=== PATIENT | female | born 1925 | race Caucasian/White ===

== ENCOUNTER 2017-01-05 10:01 | Emergency (ER) | payer OTHER ==
[2017-01-05 10:18] VITALS: PULSE 63; O2SAT 96
[2017-01-05] MEDS ORDERED: LET GEL TOPICAL 1 EA SYR TP ONE (10:47)
--- NOTE | 2017-01-05 11:11 | EDPHY ---
HPI/HX/ROS/PE/MDM Narrative: CHIEF COMPLAINT: Fall, head and knee injury HPI: The patient is a 89-year-old female who is on chronic anticoagulation with Coumadin for "a heart issue." Prior to arrival, the patient tripped over something while at a pool and struck her right forehead and left knee. She did not lose consciousness. She complains of pain to her right forehead and left knee. She was unable to ambulate secondary to pain. She does not remember when her INR was last checked. REVIEW OF SYSTEMS: Aside from elements discussed in the HPI, a comprehensive 10-point review of systems was reviewed and is negative. PMH: Chronic anticoagulation, pacemaker/AICD. SOCIAL HISTORY: Denies alcohol or drug abuse. PHYSICAL EXAM: General:Patient is alert, in no acute distress. Family members are actively engaged in some sort of energy work on patient, stroking their hands through the air over her body. Head: Abrasion and contusion is noted to right forehead. Otherwise atraumatic. ENT:Eyes are normal to inspection. ENT inspection normal. Neck: Normal inspection. Full range of motion. Respiratory:No respiratory distress. Breath sounds normal bilaterally. Cardiovascular: Regular rate and rhythm. Strong peripheral pulses. Normal cap refill. Abdomen:The abdomen is nontender to palpation. There are no peritoneal signs. There are normal bowel sounds. Back: Normal to inspection. No tenderness to palpation. Skin: Normal color. No rash. Warm and dry. Extremities: Skin tear noted to right knee. Tenderness, erythema is present to the left anterior knee. Moderate pain with range of motion. No deformity. Neuro: Oriented x3. Normal motor function. Normal sensory function. ED Course: CT head is negative for fracture or bleed. X-ray of left knee is significant for patellar fracture. Patient will be placed in a knee immobilizer and given crutches as well as orthopedic referral. Family member requested that we perform a blood test to rule out concussion. I explained this test is not available at the hospital and likely has no clinical relevance. MDM: This patient presents with head injury in the setting of Coumadin therapy. Thankfully there is no evidence of skull fracture or intracranial bleed. She does have a small patellar fracture on x-ray and was placed in a knee immobilizer and given orthopedic follow-up for this. I see no evidence of active bleeding. There is no evidence of compartment syndrome. All the patient 's questions were answered and she is satisfied with the plan of care. - Data Points Imaging Results: Imaging Impressions Head CT 01/05/17 10:29 Impression: Stable elderly head CT since October 2015. No acute posttraumatic abnormality identified. Results called and discussed with Newton Flower MD, at 01/05/2017 10:54 General information for patients regarding this examination can be found at [email or web address]. If you have questions or comments about this report, please contact me at (hospital) or [phone] (cell). Knee X-Ray 01/05/17 10:55 Impression: 1. Acute minimally distracted transverse fracture inferior pole the patella. 2. Severe patellofemoral osteoarthritis and patellofemoral tracking abnormality. Imaging: Discussed imaging studies w/ scallop binder Radiologist, I viewed and interpreted images myself Laboratory Results: Laboratory Results 01/05/17 11:40 01/05/17 01/05/17 01/05/17 11:40 11:40 11:40 WBC 4.66 10^3/uL 10^3/uL (3.80-9.50) RBC 4.34 10^6/uL 10^6/uL (4.18-5.33) Hgb 13.6 g/dL g/dL (12.6-16.3) Hct 41.5 % % (38.0-47.0) MCV 95.6 fL fL (81.5-99.8) MCH 31.3 pg pg (27.9-34.1) MCHC 32.8 g/dL g/dL (32.4-36.7) RDW 13.1 % % (11.5-15.2) Plt Count 199 10^3/uL 10^3/uL (150-400) MPV 9.9 fL fL (8.7-11.7) Neut % (Auto) 54.6 % % (39.3-74.2) Lymph % (Auto) 30.7 % % (15.0-45.0) [place] % (Auto) 10.7 % % (4.5-13.0) Eos % (Auto) 3.4 % % (0.6-7.6) Baso % (Auto) 0.2 % L % (0.3-1.7) Nucleat RBC Rel Count 0.0 % % (0.0-0.2) Absolute Neuts (auto) 2.54 10^3/uL 10^3/uL (1.70-6.50) Absolute Lymphs (auto) 1.43 10^3/uL 10^3/uL (1.00-3.00) Absolute Monos (auto) 0.50 10^3/uL 10^3/uL (0.30-0.80) Absolute Eos (auto) 0.16 10^3/uL 10^3/uL (0.03-0.40) Absolute Basos (auto) 0.01 10^3/uL L 10^3/uL (0.02-0.10) Absolute Nucleated RBC 0.00 10^3/uL 10^3/uL (0-0.01) Immature Gran % 0.4 % % (0.0-1.1) Immature Gran # 0.02 10^3/uL 10^3/uL (0.00-0.10) PT Pending INR Pending APTT Pending Sodium Pending Potassium Pending Chloride Pending Carbon Dioxide Pending Anion Gap Pending BUN Pending Creatinine Pending Estimated GFR Pending Glucose Pending Calcium Pending Medications Given: Discontinued Medications Tetracaine/Epinephrine/Lidocaine (Let Gel Topical) 1 ea TP EDNOW ONE Stop: 01/05/17 10:48 Last Admin: 01/05/17 10:53 Dose: 1 ea General Time Seen by Provider: 01/05/17 10:20 Initial Vital Signs: Initial Vital Signs Temperature (C) 36.6 C 01/05/17 10:15 Heart Rate 63 01/05/17 10:15 Respiratory Rate 18 01/05/17 10:15 Blood Pressure 185/90 H 01/05/17 10:15 O2 Sat (%) 96 01/05/17 10:15 O2 Delivery Mode Room Air Allergies/Adverse Reactions: morphine [Morphine] Allergy (Mild, Verified 01/05/17 10:13) n/v Home Medications: Medication Instructions Recorded Ergocalciferol [Vitamin D2 (*)] 50,000 unit PO HARRIS@01/05/17 Isosorbide Mononitrate [Imdur 30 30 mg PO HS 01/05/17 mg (*)] Lisinopril [Zestril 2.5 mg (*)] 2.5 mg PO DAILY 01/05/17 Metoprolol Tartrate [Lopressor 25 25 mg PO BID 01/05/17 mg (*)] Multivitamins [Multivitamin (*)] 1 each PO DAILY 01/05/17 Ranolazine [Ranexa] 500 mg PO BID 01/05/17 Warfarin Sodium [Coumadin 3MG (*)] 3 mg PO DAILY16 01/05/17 Warfarin Sodium [Coumadin 3MG (*)] 3 mg PO DAILY16 01/05/17 Departure - Departure Disposition: Home, Routine, Self-Care Clinical Impression: Patella fracture, Forehead contusion Condition: Good Instructions: Patellar Fracture (ED) Additional Instructions: Rest, ice, elevation. Follow up with an orthopedic surgeon within one week. Return to the emergency department for worsening pain, swelling, numbness, weakness or other concerns. Wear splint at all times until reevaluation. Referrals: Rasta Ness MD [Primary Care Provider] - As per Instructions Jett Rankin MD [Medical Doctor] - As per Instructions
[2017-01-05 11:50] LABS: % IMMATURE GRANULYOCYTES 0.4 % (0.0-1.1); ABSOLUTE IMMATURE GRANULOCYTES 0.02 10^3/uL (0.00-0.10); ADD DIFF? NO; ADD MORPH? NO; ADD SCAN? NO; ATYPICAL LYMPHOCYTE FLAG 0 (0-99); FRAGMENT RBC FLAG 0 (0-99); HEMATOCRIT 41.5 % (38.0-47.0); HEMOGLOBIN 13.6 g/dL (12.6-16.3); LEFT SHIFT FLG 0 (0-99); LIPEMIA HEMOLYSIS FLAG 80 (0-99); MEAN CELL HEMOGLOBIN 31.3 pg (27.9-34.1); MEAN CELL HEMOGLOBIN CONCENTR. 32.8 g/dL (32.4-36.7); MEAN CELL VOLUME 95.6 fL (81.5-99.8); MEAN PLATELET VOLUME 9.9 fL (8.7-11.7); PLATELET CLUMPS FLAG 0 (0-99); PLATELET COUNT 199 10^3/uL (150-400); RED BLOOD CELL COUNT 4.34 10^6/uL (4.18-5.33); RED CELL DISTRIBUTION WIDTH 13.1 % (11.5-15.2)
[2017-01-05 12:03] LABS: INR 2.3 (0.83-1.16); PROTIME(PATIENT) 25.5 SEC (12.0-15.0)
[2017-01-05 12:04] LABS: APTT 34.4 SEC (23.0-38.0)
[2017-01-05 12:11] VITALS: BP 179/93; RESP 14; TEMP 97.7
[2017-01-05 12:14] LABS: ANION GAP 11 mEq/L (8-16); CALCIUM 9.9 mg/dL (8.5-10.4); CARBON DIOXIDE 23 mEq/l (22-31); CHLORIDE 104 mEq/L (97-110); CREATININE 0.9 mg/dL (0.6-1.0); GLOMERULAR FILTRATION RATE 59; GLUCOSE 171 mg/dL (70-100); POTASSIUM 4.3 mEq/L (3.5-5.2); SODIUM 138 mEq/L (134-144)
== END 2017-01-05 12:43 | disposition home or self-care (01) ==
LOC: UNDOADMOB 11:11
DX: S82.032A Displaced transverse fracture of left patella, initial encounter for closed fracture (principal); S00.83XA Contusion of other part of head, initial encounter; Z79.01 Long term (current) use of anticoagulants; Z95.0 Presence of cardiac pacemaker; W01.198A Fall on same level from slipping, tripping and stumbling with subsequent striking against other object, initial encounter
CPT/HCPCS: 70450; 73564; 99285; L1830

== ENCOUNTER 2017-06-08 16:45 | Inpatient (IN) | payer OTHER ==
--- NOTE | 2017-06-08 17:29 | EDPHY ---
H & P Time Seen by Provider: 06/08/17 16:58 HPI/ROS: CHIEF COMPLAINT: Left lower quadrant pain HISTORY OF PRESENT ILLNESS: Patient is an 89-year-old female on Coumadin with a history of right nephrectomy who presents to the emergency department with left lower quadrant pain. Her pain started at 7:00 p.m. She describes left lower quadrant pain radiating to left flank. She strep did as aching. It was severe. It resolved after about an hour. Her pain returned this this afternoon at 4:00 p.m.. Same location, in the left lower quadrant and left flank. She has had nausea with no vomiting. No dysuria. Mild frequency last night. No hematuria. She has had no fevers or chills. No diarrhea. No recent trauma. REVIEW OF SYSTEMS: My complete review of systems is negative except as mentioned in the HPI. Past Medical/Surgical History: Includes hypertension, blood caught, kidney cancer, hyperlipidemia Past surgical history: Includes right nephrectomy, bilateral hip replacements Social history: The patient does not smoke Smoking Status: Never smoked Physical Exam: Vitals noted GENERAL: Well-appearing, in no acute distress, alert. HEENT: Eyes normal to inspection, normal pharynx, no signs of dehydration. NECK: No thyromegaly, no lymphadenopathy, supple. RESPIRATORY: Clear to auscultation bilaterally, no rales, rhonchi or wheezing. CVS: Regular rate and rhythm, no rubs, murmurs, or gallops. ABDOMEN: Soft, left lower quadrant tenderness to palpation with no rebound or guarding, nondistended, no organomegaly. BACK: Normal to inspection, no CVA tenderness. SKIN: Normal color, no rash, warm, dry. No pallor. EXTREMITIES: No pedal edema, no calf tenderness, no Homans sign or cords, no joint swelling. NEURO/PSYCH: Alert and oriented x3, normal mood and affect, normal motor sensory exam. Constitutional: Initial Vital Signs Temperature (C) 36.8 C 06/08/17 16:48 Heart Rate 68 06/08/17 16:48 Respiratory Rate 18 06/08/17 16:48 Blood Pressure 188/110 H 06/08/17 16:48 O2 Sat (%) 97 06/08/17 16:48 O2 Delivery Mode Room Air Allergies/Adverse Reactions: morphine [Morphine] Allergy (Mild, Verified 01/05/17 10:13) n/v Home Medications: Medication Instructions Recorded Ergocalciferol [Vitamin D2 (*)] 50,000 unit PO HARRIS@09 01/05/17 Isosorbide Mononitrate [Imdur 30 30 mg PO HS 01/05/17 mg (*)] Lisinopril [Zestril 2.5 mg (*)] 2.5 mg PO DAILY 01/05/17 Metoprolol Tartrate [Lopressor 25 25 mg PO BID 01/05/17 mg (*)] Multivitamins [Multivitamin (*)] 1 each PO DAILY 01/05/17 Ranolazine [Ranexa] 500 mg PO BID 01/05/17 Warfarin Sodium [Coumadin 3MG (*)] 3 mg PO DAILY16 01/05/17 Warfarin Sodium [Coumadin 3MG (*)] 3 mg PO DAILY16 01/05/17 Medical Decision Making - Diagnostics Imaging Results: Imaging Impressions Abdomen/Pelvis CT 06/08/17 17:30 Impression: 1. Moderate to severe hydronephrosis in the left kidney, with prominent perinephric stranding around the left kidney. There is beam hardening artifact from the patient's bilateral total hip arthroplasties but probably a 9 mm obstructing calculus at the ureteropelvic junction distal left ureter. Surgically absent right kidney. 3. Infrarenal abdominal aortic aneurysm, measuring 3.8 cm. Extensive atherosclerotic change of the abdominal vasculature. 4. Multilevel degenerative change lumbar spine, with a levoscoliotic curvature. Degenerative change both SI joints. 5. Scarring in both lower lobes and atelectasis. Area of more masslike density , which could represent scar or atelectasis, measuring 9 mm, laterally in the right lower lobe. Recommend follow up in 3-6 months versus comparison to old studies. Results called and discussed with Linda Lezama M.D., on June 08, 2017 at 1852. Attention: This CT examination is specifically designed to evaluate patients who are clinically suspected of having acute obstructive uropathy. This examination does not use radiographic contrast, and as such, provides only a limited evaluation of the abdomen, pelvis, and retroperitoneum. If there is further clinical suspicion for pathological conditions other than obstructive uropathy, a complete CT evaluation of the abdomen and pelvis utilizing intravenous, oral, and rectal contrast should be considered. Chest X-Ray 06/08/17 18:55 Impression: Interstitial pulmonary edema versus viral pneumonia. ED Course/Re-evaluation: In the emergency department I discussed possible etiologies with the patient. Answered all her questions. IV was placed. Patient did not want any pain medication. Laboratory studies were obtained. Due the patient's tenderness on exam a CT with IV contrast was ordered. Patient's CBC is normal. INR is 1.3. Patient's chemistry panel is notable for an elevated creatinine of 2.0. Glucose is elevated at 233. Because of the elevated creatinine, her CT imaging was changed from IV contrast no contrast. CT of the abdomen pelvis: Please refer the dictated report by Dr. Appiah. The patient has a high-grade left ureteral obstruction. Patient noted to have a single kidney on the left. It is unclear from the initial images were the high grade obstruction is originating. Patient was noted to have a slight drop in her oxygen saturation. Because of this she was placed on nasal cannula. Additional laboratory studies including a troponin and BNP were ordered. Chest x-ray was ordered. I discussed the results with the patient. I discussed the case with Dr. Clay. He will evaluate the patient. I discussed the case with Dr. Appiah. Upon reformatting he states that he feels the obstruction is likely and 9 mm UVJ calculus. I discussed the plan with the patient and family. I answered all her questions. Patient will be admitted for further care and observation. Differential Diagnosis: My differential includes but is not limited to kidney stone, urinary tract infection, pyelonephritis, small-bowel obstruction, perforation, hematoma, dissection, aneurysm - Data Points Laboratory Results: Laboratory Results 06/08/17 17:15 06/08/17 17:15 06/08/17 06/08/17 06/08/17 17:50 17:15 17:15 WBC RBC Hgb Hct MCV MCH MCHC RDW Plt Count MPV Neut % (Auto) Lymph % (Auto) [place] % (Auto) Eos % (Auto) Baso % (Auto) Nucleat RBC Rel Count Absolute Neuts (auto) Absolute Lymphs (auto) Absolute Monos (auto) Absolute Eos (auto) Absolute Basos (auto) Absolute Nucleated RBC Immature Gran % Immature Gran # PT INR APTT Sodium 140 mEq/L mEq/L (135-145) Potassium 4.6 mEq/L mEq/L (3.5-5.2) Chloride 102 mEq/L mEq/L (97-110) Carbon Dioxide 23 mEq/l mEq/l (22-31) Anion Gap 15 mEq/L mEq/L (8-16) BUN 41 mg/dL H mg/dL (7-23) Creatinine 2.0 mg/dL H mg/dL (0.6-1.0) Estimated GFR 23 Glucose 233 mg/dL H mg/dL (70-100) Calcium 10.1 mg/dL mg/dL (8.5-10.4) Troponin I Pending NT-Pro-B Natriuret Pep Pending Urine Color Pending Urine Appearance Pending Urine pH Pending Ur Specific [place] Pending Urine Protein Pending Urine Ketones Pending Urine Blood Pending Urine Nitrate Pending Urine Bilirubin Pending Urine Urobilinogen Pending Ur Leukocyte Esterase Pending Urine RBC Pending Urine WBC Pending Ur Epithelial Cells Pending Urine Glucose Pending 06/08/17 06/08/17 17:15 17:15 WBC 6.80 10^3/uL 10^3/uL (3.80-9.50) RBC 4.54 10^6/uL 10^6/uL (4.18-5.33) Hgb 14.3 g/dL g/dL (12.6-16.3) Hct 42.2 % % (38.0-47.0) MCV 93.0 fL fL (81.5-99.8) MCH 31.5 pg pg (27.9-34.1) MCHC 33.9 g/dL g/dL (32.4-36.7) RDW 13.2 % % (11.5-15.2) Plt Count 200 10^3/uL 10^3/uL (150-400) MPV 10.2 fL fL (8.7-11.7) Neut % (Auto) 65.2 % % (39.3-74.2) Lymph % (Auto) 22.8 % % (15.0-45.0) [place] % (Auto) 10.1 % % (4.5-13.0) Eos % (Auto) 1.3 % % (0.6-7.6) Baso % (Auto) 0.3 % % (0.3-1.7) Nucleat RBC Rel Count 0.0 % % (0.0-0.2) Absolute Neuts (auto) 4.43 10^3/uL 10^3/uL (1.70-6.50) Absolute Lymphs (auto) 1.55 10^3/uL 10^3/uL (1.00-3.00) Absolute Monos (auto) 0.69 10^3/uL 10^3/uL (0.30-0.80) Absolute Eos (auto) 0.09 10^3/uL 10^3/uL (0.03-0.40) Absolute Basos (auto) 0.02 10^3/uL 10^3/uL (0.02-0.10) Absolute Nucleated RBC 0.00 10^3/uL 10^3/uL (0-0.01) Immature Gran % 0.3 % % (0.0-1.1) Immature Gran # 0.02 10^3/uL 10^3/uL (0.00-0.10) PT 17.2 SEC H SEC (12.0-15.0) INR 1.39 H (0.83-1.16) APTT 29.5 SEC SEC (23.0-38.0) Sodium Potassium Chloride Carbon Dioxide Anion Gap BUN Creatinine Estimated GFR Glucose Calcium Troponin I NT-Pro-B Natriuret Pep Urine Color Urine Appearance Urine pH Ur Specific [place] Urine Protein Urine Ketones Urine Blood Urine Nitrate Urine Bilirubin Urine Urobilinogen Ur Leukocyte Esterase Urine RBC Urine WBC Ur Epithelial Cells Urine Glucose Medications Given: Discontinued Medications Sodium Chloride (Ns) 500 mls @ 0 mls/hr IV EDNOW ONE; Wide Open PRN Reason: Protocol Stop: 06/08/17 17:31 Last Admin: 06/08/17 17:54 Dose: 500 mls Ondansetron HCl (Zofran) 4 mg IVP EDNOW ONE Stop: 06/08/17 17:31 Last Admin: 06/08/17 17:54 Dose: Not Given Departure - Departure Disposition: [facility] Clinical Impression: Ureterolithiasis, Acute renal injury Abdominal pain Qualifiers: Abdominal location: left lower quadrant Qualified Code(s): R10.32 - Left lower quadrant pain Condition: Good Referrals: Rasta Ness MD [Primary Care Provider] - As per Instructions
[2017-06-08] MEDS ORDERED: NS 500 ML IV ONE (17:30)
[2017-06-08] MEDS ORDERED: ONDANSETRON 4 MG/2 ML VIAL IVP ONE (17:30)
[2017-06-08 17:43] LABS: PLATELET COUNT 200 10^3/uL (150-400)
[2017-06-08 17:52] LABS: INR 1.39 (0.83-1.16); PROTIME(PATIENT) 17.2 SEC (12.0-15.0)
--- NOTE | 2017-06-08 21:24 | SOAPPROG ---
[facility] Progress Note Assessment/Plan: Assessment: Pt. w/ moderate-severe left hydronephrosis of unknown etiology in a solitary renal unit (s/p right nephroureterectomy for high-grade Stage T1 renal urothelial CA in 2006). Plan: 1. Scheduled for intraoperative cystoscopy, retrograde pyelography, possible ureteroscopy, and attempted stent placement on Sunday AM. 2. Hold all anticoagulants in preparation for surgery. 3. NPO after MN. 4. Full consult to follow in AM. Objective: Vital Signs Temp Pulse Resp BP Pulse Ox 36.7 C 77 17 209/100 H 94 06/08/17 20:56 06/08/17 20:56 06/08/17 20:56 06/08/17 20:56 06/08/17 20:56 PT 17.2 SEC (12.0-15.0) H 06/08/17 17:15 INR 1.39 (0.83-1.16) H 06/08/17 17:15 ICD10 Worksheet Patient Problems: Problems Problem Status Onset Abdominal pain Acute Acute renal injury Acute Ureterolithiasis Acute
[2017-06-08] MEDS ORDERED: ONDANSETRON 4 MG/2 ML VIAL IVP PRN (21:59)
[2017-06-08] MEDS ORDERED: ACETAMINOPHEN 325 MG TAB PO PRN (21:59)
[2017-06-08] MEDS ORDERED: hydrALAZINE 20 MG/ML VIAL IVP PRN (22:03)
[2017-06-08] MEDS: TAMSULOSIN HCL 0.4 MG CAP PO SCH (22:39)
--- NOTE | 2017-06-08 23:02 | GHP ---
[f rep st] HISTORY AND PHYSICAL DATE OF ADMISSION: 06/08/2017 CHIEF COMPLAINT: Left lower quadrant pain. HISTORY OF PRESENT ILLNESS: The patient is a pleasant 89-year-old female with a past medical history of ischemic cardiomyopathy and right nephrectomy secondary to high-grade renal urothelial carcinoma in 2006, who presented to the [facility] emergency room with complaints of left lower quadrant abdominal pain which started [address] imaging revealed moderate to severe hydroneph rosis in the left kidney with perinephric stranding around the left kidney. Further assessment of th e area was somewhat obstructed by a beam artifact from her hip replacements, but it was felt that she probably had a 9 mm obstructing calculus at the ureteropelvic junction in the distal left ureter. Otto Clay did her prior nephrectomy on the right and was consulted in the emergency room. Tentative plan is for cystoscopy tomorrow morning. PAST MEDICAL HISTORY: 1. Coronary artery disease, followed by Dr. David Grimm. 2. Ischemic cardiomyopathy with ejection fraction estimated at 42%. 3. Sick sinus syndrome, status post pacemaker placement. 4. History of recurrent deep vein thrombosis with a history of factor V Leiden mutation. 5. Renal cell carcinoma, status post right nephrectomy. 6. Diabetes mellitus type 2. 7. Abdominal aortic aneurysm. 8. Meningioma. 9. Osteoporosis. PAST SURGICAL HISTORY: 1. Bilateral hip replacements. 2. Right nephrectomy. 3. Pacemaker placement. 4. Hernia surgery. MEDICATIONS: This medication list is taken from her emergency room records. 1. Coumadin 3 mg daily. 2. Ranexa 500 mg twice a day. 3. Metoprolol 25 mg twice a day. 4. Lisinopril 2.5 mg daily. 5. Isosorbide mononitrate 30 mg nightly. 6. Vitamin D2 50,000 units weekly. ALLERGIES: Morphine, which causes nausea and vomiting. FAMILY HISTORY: Mother is . She had a history of coronary artery disease and diabetes. Dad is also . He also had a history of coronary artery disease and a basal cell carcinoma. SOCIAL HISTORY: The patient is currently . She has 4 children. She is a nonsmoker. 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 CODE STATUS: Discussed. She says she would be agreeable to resuscitation unless she had some sort o f terminal condition which, at that point in time, she would not want any sort of resuscitation attem pted. REVIEW OF SYSTEMS: CONSTITUTIONAL: No complaints of any fevers or chills. ENT: No recent upper re spiratory illnesses. CARDIOVASCULAR: No complaints of chest pains, palpitations or syncopal episode s. RESPIRATORY: No complaints of shortness of breath or productive cough. No pleuritic-type chest pain. GASTROINTESTINAL: No nausea or vomiting. Positive for left lower quadrant abdominal pain whi ch started approximately 24 hours ago. : No report of any blood in her urine. NEUROLOGIC: No co mplaints of headaches or focal weakness. HEMATOLOGIC: No history of any pulmonary embolism, but she does have a history of recurrent deep vein thromboses in her legs. PSYCHIATRIC: No history of anxi ety or depression. ENDOCRINE: No history of diabetes or thyroid abnormalities. SKIN: No reported skin rashes. MUSCULOSKELETAL: No focal joint pain. PHYSICAL EXAMINATION: VITAL SIGNS: Temperature 36.8, blood pressure is 188/110, heart rate 68, resp irations 16, saturating 97% on room air. GENERAL: Patient is resting comfortably in bed. She is ar ousable, awake, alert, conversant, in no acute distress. HEENT: Extraocular movements intact. Pupi ls equal. No scleral icterus. Mucous membranes moist. NECK: Supple. No thyroid enlargement noted . LUNGS: Crackles at both lung bases. No significant wheezing. Normal respiratory effort. HEART: Regular. No murmurs are appreciated. Soft heart sounds. ABDOMEN: Tender with palpation, left lo wer quadrant. No rebound tenderness. Nontender on the right. Normal bowel sounds. : No Blake c atheter in place. EXTREMITIES: No significant pitting edema. NEUROLOGIC: Cranial nerves 2-12 appe ar intact. Strength 5/5 in extremities. LABORATORY: White blood cell count is 6, hemoglobin 14, platelets 200. Sodium is 140, potassium 4.6 , chloride 102, bicarb 23, BUN 41, creatinine 2.0 with a baseline estimated at between 0.9 and 1.2 on past creatinine values. Glucose level is 233. INR is 1.3. PTT 29. BNP is 2630. Troponin 0.031. Chest x-ray showed interstitial edema versus pneumonia. CT scan of the abdomen and pelvis as detailed in the HPI. ASSESSMENT PLAN: 1. Acute kidney injury. Presumed secondary to ureter obstruction and subsequent hydronephrosis. Dr Chet Clay has consulted. Plan is for cystoscopy tomorrow. Continue to trend creatinine daily. 2. Left hydronephrosis, likely secondary to distal left ureter stone with cystoscopy tomorrow to add ress. We will start patient on Flomax. 3. Acute hypoxic respiratory failure. Patient is not on oxygen at home. She needed 2 L here. This may be related to some pulmonary edema noted on chest imaging. She does have crackles at her lung b ases as well. For now, I am going hold off on Lasix so as not to worsen the hydronephrosis. She doc ears stable with 2 L of nasal cannula. 4. Accelerated hypertension. We used p.r.n. hydralazine for now. Possibly Lasix tomorrow if still uncontrolled after cystoscopy. 5. Coronary artery disease. Currently asymptomatic. Continue current medical management. Dr. Romel nicholson will follow as an outpatient. 6. Ischemic cardiomyopathy. BNP is elevated. Not extremely edematous on exam but possibly developi ng mild fluid overload. 7. History of deep vein thrombosis. Would anticipate resuming anticoagulation after her cystoscopy. 8. Diabetes mellitus type 2. Uncertain control. We will check an A1c with tomorrow morning's labs. 9. Abdominal aortic aneurysm. This will need continued outpatient following. 10. Meningioma, as above. Continue outpatient monitoring. 11. Pulmonary nodule. This was noted on CT imaging. A followup CT in 3-6 months was recommended. 12. Deep venous thrombosis prophylaxis. Compression devices. We will hold anticoagulation at this point in time. DISPOSITION: I anticipate she will be here for over 2 midnights, probably 3-5 days. I will admit he r on inpatient status. /[id number]/MODL
--- NOTE | 2017-06-09 02:03 | PDMN ---
Medical Necessity Medical necessity: C/M review: est. > 2 MN LOS for eval and TX of acute and persistent - kidney injury presumed secondary to ureter obstruction and subsequent hydronephrosis, lleft hydronephrosis likely secondary to left ureteral stone, hypoxic respiratory failure, accelerated hypertension requiring planned 06/09/2017 surgical intervention- cystoscopy, ongoing IV Hydralazine as needed, pulse oximetry, supplemental O2, acute inpt PT.OT, comorbid CAD, ischemic cardiomyopathy, type 2 diabetes, history of recurrent DVT, Factor Leiden V mutation, abdominal aortic aneurysm, meningioma, pulmonary nodule noted on CT imaging, sick sinus syndrome S/P pacemaker placement, renal cell carcinoma S/P right nephrectomy, osteoporosis per H/P.
[2017-06-09 04:26] LABS: PLATELET COUNT 177 10^3/uL (150-400)
[2017-06-09 04:36] LABS: INR 1.56 (0.83-1.16); PROTIME(PATIENT) 18.8 SEC (12.0-15.0)
[2017-06-09] MEDS ORDERED: IOPAMIDOL (ISOVUE-M 300) 15 ML VIAL ONE ×2 (08:30→10:41)
[2017-06-09] MEDS ORDERED: LIDOCAINE 2% JELLY 20 ML (UROJECT) ONE (08:30)
[2017-06-09] MEDS ORDERED: levOFLOXACIN 500 MG/DEXTROSE 100 ML IV ONE (09:00)
--- NOTE | 2017-06-09 09:18 | PDANEPAE ---
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: [employer] Pacemaker Model: [id number] Pacemaker Mode: Unkown Date Pacemaker Last Checked: September 2016 ANE Patient History - Allergies Allergies/Adverse Reactions: morphine [Morphine] Allergy (Mild, Verified 01/05/17 10:13) n/v - Home Medications Home Medications: Ergocalciferol [Vitamin D2 (*)] 50,000 unit PO HARRIS@01/05/17 [Last Taken ] Isosorbide Mononitrate [Imdur 30 mg (*)] 30 mg PO HS 01/05/17 [Last Taken ] Lisinopril [Zestril 2.5 mg (*)] 2.5 mg PO DAILY@20 01/05/17 [Last Taken 06/08/17 ] Metoprolol Tartrate [Lopressor 25 mg (*)] 25 mg PO BID 01/05/17 [Last Taken AM] Ranolazine [Ranexa] 500 mg PO BID 01/05/17 [Last Taken 06/08/17 AM] Warfarin Sodium [Coumadin 3MG (*)] 3 mg PO DAILY16 01/05/17 [Last Taken 06/07/17 ] Atorvastatin Calcium [Lipitor 10 mg (*)] 10 mg PO DAILY 06/08/17 [Last Taken Unknown] glipiZIDE [Glucotrol] 5 mg PO DAILY 06/08/17 [Last Taken Unknown] - NPO status NPO Since - Liquids (Date): 06/09/17 NPO Since - Liquids (Time): 07:00 NPO Since - Solids (Date): 06/08/17 NPO Since - Solids (Time): 15:00 - Smoking Hx Smoking Status: Never smoked ANE Labs/Vital Signs - Labs Result Diagrams: 06/09/17 03:45 06/09/17 03:45 - Vital Signs Blood Pressure: 98/47 Heart Rate: 64 Respiratory Rate: 16 O2 Sat (%): 99 Height: 157.48 cm Weight: 64.864 kg ANE Physical Exam - Airway Mallampati Score: Class 2 - ASA Status ASA Status: III, E ANE Anesthesia Plan Anesthesia Plan: GA w LMA
[2017-06-09] MEDS ORDERED: fentaNYL 100 MCG/2 ML INJ ONE (09:23)
[2017-06-09] MEDS ORDERED: PROPOFOL 200 MG/20 ML VIAL ONE (09:24)
[2017-06-09] MEDS ORDERED: ONDANSETRON 4 MG/2 ML VIAL ONE (09:33)
[2017-06-09] MEDS ORDERED: PHENYLEPHRINE HCL 100 MCG/ML SYR ONE (10:16)
[2017-06-09] MEDS ORDERED: METOCLOPRAMIDE 10 MG/2 ML VIAL ONE (10:16)
[2017-06-09] MEDS ORDERED: ROCURONIUM 50 MG/5 ML VIAL ONE (10:45)
[2017-06-09] MEDS ORDERED: fentaNYL 100 MCG/2 ML INJ IVP PRN (11:11)
[2017-06-09] MEDS ORDERED: NALOXONE HCL 0.4 MG/ML INJ IVP PRN (11:11)
[2017-06-09] MEDS ORDERED: NS 500 ML IV PRN (11:11)
[2017-06-09] MEDS ORDERED: PROMETHAZINE HCL 25 MG/ML INJ IVP PRN (11:11)
--- NOTE | 2017-06-09 11:14 | POSTANESTH ---
Post Anesthetic Evaluation Cardiovascular Status: Similar to Pre-Op Cond Respiratory Status: Similar to Pre-op Cond. Level of Consciousness/Mental Status: Can Participate in Eval Pain Control: Adequate, Prn Tx Ordered Nausea/Vomiting Control: Adequate, Prn Tx Ordered Complications Possibly Related to Anesthesia: None Noted
--- NOTE | 2017-06-09 11:19 | POSTOPPROG ---
Post Op Note Date of Operation: 06/09/17 (consult # [id number]) Surgeon: Adrien Clay (# [id number]) Anesthesia: LMA Pre-op Diagnosis: Left hydronephrosis, solitary kidney Post-op Diagnosis: Left hydronephrosis, solitary kidney Procedure: Cysto, Left RGP, left ureteroscopy, ureteral stent placement (4.7 Fr. x 24) Findings: See op note Inf/Abcess present in the surg proc area at time of surgery?: No EBL: Minimal Complications: None Drains: Other (Left ureteral stent) Specimen(s): None
[2017-06-09] MEDS: TAMSULOSIN HCL 0.4 MG CAP PO SCH (11:53)
--- NOTE | 2017-06-09 12:04 | GCON ---
[f rep st] CONSULTATION UROLOGY CONSULTATION DATE OF CONSULTATION: 06/09/2017 REFERRING PHYSICIAN: Hospitalist Service REASON FOR CONSULTATION: Left renal obstruction with solitary kidney. 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 The patient was last seen in my office in 12/2016, at which time it was deemed that she was cured from her urothelial cancer and was not in need of any subsequent followup from this standpoint. More recently, the patient states that she has been having some very mild left upper quadrant abdominal discomfort which started possibly several months ago. Then about 3 days ago, the pain became acutely severe and radiated from the left upper quadrant into her left flank area and left back. She denies any associated dysuria, gross hematuria, fevers, flu-like symptoms, nor any other changes in her voiding pattern. She has noticed possibly some recent abnormal odor to her urine. The patient was seen in her primary care doctor's office on Sunday, then subsequently sent to the emergency room for further evaluation and management. CT scan was performed with results detailed below. 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 PAST SURGICAL HISTORY: Bilateral hip prosthesis (with most recent revision approximately 07/2013), right-sided hand assisted laparoscopic nephroureterectomy in 06/2006, transurethral bladder tumor resection in 07/2008 , umbilical hernia repair, pacemaker placement initially in 1996. ADMISSION MEDICATIONS: Coumadin 3 mg daily, Ranexa 500 mg twice daily, metoprolol 25 mg twice daily, lisinopril 2.5 mg daily, isosorbide 30 mg nightly. ALLERGIES: Morphine causes emesis. FAMILY HISTORY: Not contributory. SOCIAL HISTORY: The patient is and splits her time between [place] and [place]. She has 4 children. 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 She has a brief smoking history from use prior to her late 20s. She consumes an occasional alcoholic drink. REVIEW OF SYSTEMS: Unremarkable, other than mentioned above in the HPI and past medical history. PHYSICAL EXAMINATION: GENERAL: Elderly, well-developed, well-nourished white female in no acute distress presently. She is lying supine in bed comfortably. VITALS: BP 98/47 Pulse 70 RR 16 O2 sat. 99% on 3L nasal canula Temp. 36.7C HEENT: Normocephalic, atraumatic. NECK: Supple. CHEST: Unlabored respiratory pattern. HEART: Regular rate. ABDOMEN: Soft with mild tenderness in the left upper quadrant. No peritoneal signs. No involuntary guarding. BACK: Mild left CVA tenderness. EXTREMITIES: Warm without cyanosis, clubbing, or significant edema. VASCULAR: Normal femoral and dorsalis pedis pulses bilaterally. NEUROLOGIC: She is alert and oriented. She answers all questions appropriately with normal mood and affect. LABORATORY: Admission CBC notable for a white blood cell count 6,800. Otherwise normal study. Coagulation parameters notable for INR of 1.56 today, compared to 1.39 on admission yesterday. Chemistry panel yesterday notable for a creatinine of 2.0, which is up to 2.3 this morning. Glucose is 244 this a.m. and natruretic peptide from yesterday is 2630. Urinalysis has not been obtained. RADIOGRAPHIC STUDIES: Noncontrast abdominopelvic CT scan in the ER yesterday: Upon my review, notable for moderate to severe left hydronephrosis and proximal hydroureter down with level of obstruction extending down to an unknown level. It is difficult to assess the lower ureters due to severe artifact related to bilateral hip prostheses. She has fairly severe thoracolumbar spinal curvature. There is approximately a 4 cm infrarenal partially calcified aorta which deviates abnormally to the left side as a result of her spinal curvature. There is probable perirenal urine extravasation and this is also probably tracking alongside the proximal ureter. Right kidney is surgically absent. IMPRESSION: 1. Symptomatic severe left hydronephrosis and proximal hydroureter of unclear etiology. 2. Solitary left kidney as a result of prior right nephroureterectomy for high- grade renal pelvic urothelial cancer in 2006. 3. Acute on chronic renal failure. 4. Coumadin-induced coagulopathy. PLAN: 1. Proceed with intraoperative cystoscopy, retrograde pyelography, ureteroscopy , and other indicated procedures with attempted ureteral stent placement. I have explained to the patient that I will try and delineate the cause for her obstruction and treat if possible. 2. Hold anticoagulants for the present time in light of the impending surgery. Thank you for this consultation. /[id number]/MODL MTDD
--- NOTE | 2017-06-09 12:14 | GOP ---
[f rep st] OPERATIVE REPORT DATE OF OPERATION: 06/09/2017 SURGEON: Adrien Clay MD ANESTHESIA: Laryngeal mask. PREOPERATIVE DIAGNOSIS: 1. Moderate to severe left hydronephrosis and hydroureter of unclear etiology. 2. Solitary left kidney. 3. Acute on chronic renal failure. 4. History of right renal pelvic high-grade urothelial carcinoma, status post nephroureterectomy in 2006. POSTOPERATIVE DIAGNOSIS: Moderate hydronephrosis possibly secondary to ureteropelvic junction obstruction. PROCEDURE PERFORMED: 1. Cystourethroscopy, left retrograde pyelography. 2. Diagnostic left ureteroscopy. 3. Left ureteral stent placement (4.7-Andorran x 24 cm). FINDINGS: Normal ureter with moderate hydronephrosis, suggestive for ureteropelvic junction obstruction. ESTIMATED BLOOD LOSS: Minimal. INDICATIONS: This woman was admitted yesterday evening with severe left renal colic due to obstruction of unclear etiology. It was recommended the patient undergo intraoperative management at this time. The indications for the procedures as well as potential risks and complications were discussed with the patient preoperatively. She appeared to understand, her questions were answered , and she wished to proceed. Written informed surgical consent was thereafter obtained. DESCRIPTION OF PROCEDURE: The patient was brought to the operating room administered laryngeal mask anesthesia. She was carefully placed in the dorsal lithotomy position on the cystoscopic table. The genital area was sterilely prepped with Betadine scrub and paint, then draped in usual sterile fashion. Cystoscopy was performed with a 30-degree lens through a 22-Andorran sheath. Urethra was notable for a caruncle, but otherwise unremarkable. There were significant vaginal mucosal atrophic changes. Bladder revealed no areas of abnormal erythema, tumors, or foreign bodies. It should be mentioned that there was some very small blood clot-appearing elements within the bladder floating around. The bladder mucosa was completely normal otherwise. Right ureteral orifice was surgically absent. Left ureteral orifice was normal in appearance and position. A 5-Andorran open-ended ureteral catheter was used to perform retrograde pyelography on the left side. Under active fluoroscopic guidance, retrograde pyelogram revealed a possible filling defect in the mid ureter that seemed to be fairly mobile and possibly consistent with clot. It had an irregular appearance to it. There was minimal left hydroureter noted diffusely. There were no filling defects otherwise appreciated. There was moderate left hydronephrosis and calyceal dilatation. There was possible narrowing versus tortuosity (or both) of the left proximal ureter. I decided to proceed with diagnostic left ureteroscopy. Therefore, a 0.035 inch hydrophilic guidewire was advanced up the left ureter and into the renal collecting system as noted fluoroscopically. The passage of the guidewire was performed without any difficulty. The distal ureter was then dilated with a 4 cm balloon by maintaining a pressure of 16 atmospheres for about 4 minutes. The balloon dilator and cystoscope were then removed while keeping the guidewire in place. Semi-rigid ureteroscopy was then performed. The ureteroscope was advanced alongside the guidewire into the ureter. The ureteroscope was advanced all the way to the ureteropelvic junction. The ureter was completely normal until the proximal aspect was reached, just distal to the ureteropelvic junction. At this location there appeared to be some mild tortuosity and mild narrowing of the lumen. I was able to carefully navigate the scope through this portion of the ureter and into the renal pelvis. No distinct abnormalities were otherwise noted. I decided that it would not be beneficial at this point to proceed with flexible ureteronephroscopy. Certainly, no calculi nor other obstructing abnormalities of the ureter were appreciated, other than possibly some narrowing of the proximal aspect as noted above. I then decided to proceed with ureteral stenting. The ureteroscope was removed and the cystoscope was back-loaded over the guidewire. A 4.7-Andorran x 24 cm hydrophilic ureteral stent was advanced over the guidewire until it was properly positioned as seen fluoroscopically in the kidney and cystoscopically in the bladder. The bladder was then drained of all return which was relatively clear. The instruments were removed and 20 cc of 2% lidocaine injected transurethrally for postoperative analgesic purposes. The patient was then awakened, transferred to her bed, then taken to the recovery room. She tolerated the procedure well overall. COMPLICATIONS: None. DISPOSITION: She was transferred to the recovery room in stable condition. She should be monitored in the hospital today. I have recommended resuming her Coumadin tomorrow. If her renal function is improving appropriately, as expected, with tomorrow's lab work, then she can be discharged and I will have her follow up in my office in a couple weeks for further management. /[id number]/MODL MTDD
[2017-06-09] MEDS: ATORVASTATIN CALCIUM 10 MG TAB PO SCH (12:26)
[2017-06-09] MEDS: METOPROLOL TARTRATE 25 MG TAB PO SCH ×2 (12:26→21:02)
[2017-06-09] MEDS: PHENAZOPYRIDINE HCL 200 MG TAB PO SCH ×3 (13:30→21:02)
--- NOTE | 2017-06-09 14:07 | HOSPPROG ---
Hospitalist Progress Note Assessment/Plan: * ARF - obstruction at UPJ of unilateral kidney -s/p ureteral stent - source of obstruction unclear -follow creatinine - should improve with relief of obstruction * Acute on chronic systolic CHF - EF 42% -hold off on lasix - suspect natural diuresis will occur with relief of obstruction * CAD with ischemic cardiomyopathy - Ranexa * Recurrent DVT with Factor V Leiden -per urology - restart Coumadin tomorrow * SSS s/p PCM * DM II * Urothelial cell carcinoma s/p right nephrectomy * AAA 3.8 cm -outpatient follow-up * Pulmonary nodule -repeat CT 3-6 months Subjective: No complaints, some bladder irritation post procedure Objective: Vital Signs Temp Pulse Resp BP Pulse Ox 36.7 C 82 14 137/103 H 97 06/09/17 11:53 06/09/17 11:53 06/09/17 11:53 06/09/17 11:53 06/09/17 11:53 Laboratory Results 06/09/17 03:45 06/09/17 03:45 06/08/17 06/09/17 06/10/17 05:59 05:59 05:59 Intake Total 30 625 Output Total 200 100 Balance -170 525 PT 18.8 SEC (12.0-15.0) H 06/09/17 03:45 INR 1.56 (0.83-1.16) H 06/09/17 03:45 CXR viewed, my personal interpretation is- CHF CT a/p - suspect stone causing obstruction, pulmonary nodule - Physical Exam Constitutional: no apparent distress, appears nourished, not in pain Cardiovascular: regular rate and rhythym, no murmur, rub, or gallop Respiratory: no respiratory distress, no rales or rhonchi, clear to auscultation Gastrointestinal: normoactive bowel sounds, soft, non-tender abdomen, no palpable masses Skin: no rashes or abrasions, no fluctuance, no induration Neurologic: AAOx3, sensation intact bilaterally Psychiatric: interacting appropriately, not anxious, not encephalopathic, thought process linear ICD10 Worksheet Patient Problems: Problems Problem Status Onset Abdominal pain Acute Acute renal injury Acute Ureterolithiasis Acute
[2017-06-09] MEDS ORDERED: D50W 25 GM/50 ML VIAL IVP PRN (14:10)
[2017-06-09] MEDS ORDERED: NS 1,000 ML IV SCH (14:15)
--- NOTE | 2017-06-09 15:10 | ASMTCMCOM ---
CM Note CM Note Notes: 06/09/2017 Case Management Note Discussed pt during rounds. Pt was in the OR this morning w/ left ureteral stent placed. Pt admitted for hydronephrosis and acute renal injury. PT and OT were unable to eval pt today d/t morning procedure in the OR. Case Management d/c poc: to be determined pending recommendations from OT and PT. Case Management to follow. Date Signed: 06/09/2017 03:09 PM Electronically Signed By:Jadyn Lennon RN
[2017-06-09] MEDS ORDERED: ISOSORBIDE MONONITRATE 30 MG TAB.SR PO SCH (21:00)
[2017-06-09] MEDS: RANOLAZINE 500 MG TAB.ER PO SCH (21:01)
[2017-06-10 03:42] LABS: PLATELET COUNT 143 10^3/uL (150-400)
[2017-06-10 03:52] LABS: INR 1.68 (0.83-1.16); PROTIME(PATIENT) 19.9 SEC (12.0-15.0)
[2017-06-10 07:14] VITALS: BP 131/61; PULSE 74; RESP 16; TEMP 99.8
[2017-06-10] MEDS: PHENAZOPYRIDINE HCL 200 MG TAB PO SCH (08:27)
[2017-06-10] MEDS: ATORVASTATIN CALCIUM 10 MG TAB PO SCH (08:27)
[2017-06-10] MEDS: METOPROLOL TARTRATE 25 MG TAB PO SCH (08:27)
[2017-06-10] MEDS: RANOLAZINE 500 MG TAB.ER PO SCH (08:27)
[2017-06-10 08:29] VITALS: O2SAT 92
[2017-06-10] MEDS ORDERED: glipiZIDE 5 MG TAB PO SCH (09:00)
--- NOTE | 2017-06-10 09:45 | ASMTLACE ---
[facility] Length of stay for Answers: 1 day current admission Acuity / Level of Answers: Yes Care: Did the patient have an inpatient admission? Comorbidities - select Answers: Any tumor (including all that apply lymphoma or leukemia) Coronary Atery Disease Diabetes (uncontrolled or controlled) Mild liver or renal disease Other Notes: Ischemic cardiomyopathy, sick sinus syndrome s/p pacemaker placement, recurrent DVT,abdominal aortic aneurysm, meningioma, o radha oporosis # of Emergency department Answers: 1-2 visits in the last 6 months Score: 13 Date Signed: 06/10/2017 09:44 AM Electronically Signed By:Jadyn Lennon RN
--- NOTE | 2017-06-10 14:56 | ASDISCHSUM ---
Discharge Information Plan Status:Home with No Needs Medically Cleared to Leave:06/09/2017 Discharge Date:06/10/2017 11:20 AM CM D/C Disposition:Home, Routine, Self-Care ADT D/C Disposition:Home, Routine, Self-Care Projected Discharge Date:06/10/2017 11:20 AM Transportation at D/C:Family Discharge Delay Reason: Follow-Up Date:06/10/2017 11:20 AM Discharge Slot: Final Diagnosis: Placement Information Patient Contact Information Contact Name:GONZALEZANA Relationship:Daughter Address:[address] City:[facility] Phone: State/Zip Code:[place] Email: Financial Information Financial Class:Medicare Primary Plan Desc:MEDICARE INPATIENT Primary Plan Number:[id number] Secondary Plan Desc:[facility] [employer] [facility] [employer] Secondary Plan Number:[id number] Assessment Information LACE LACE Length of stay for Answers: 1 day current admission Acuity / Level of Answers: Yes Care: Did the patient have an inpatient admission? Comorbidities - select Answers: Any tumor (including all that apply lymphoma or leukemia) Coronary Atery Disease Diabetes (uncontrolled or controlled) Mild liver or renal disease Other Notes: Ischemic cardiomyopathy, sick sinus syndrome s/p pacemaker placement, recurrent DVT,abdominal aortic aneurysm, meningioma, o radha oporosis # of Emergency department Answers: 1-2 visits in the last 6 months Score: 13 Date Signed: 06/10/2017 09:44 AM Electronically Signed By:Jadyn Lennon RN [facility] Progress Note CM Note CM Note Notes: 06/09/2017 Case Management Note Discussed pt during rounds. Pt was in the OR this morning w/ left ureteral stent placed. Pt admitted for hydronephrosis and acute renal injury. PT and OT were unable to eval pt today d/t morning procedure in the OR. Case Management d/c poc: to be determined pending recommendations from OT and PT. Case Management to follow. Date Signed: 06/09/2017 03:09 PM Electronically Signed By:Jadyn Lennon RN Case Management Discharge Plan Note Case Management Discharge Discharge Order Complete? Answers: Yes Patient to Obtain Answers: Independently Medications Transportation Arranged Answers: Family/Friends Discharge Comments Notes: 06/10/2017 Case Management Note Met w/pt. IM signed. Pt plans for daughter to pick up and delivery driver and transport home. Daughter Libra [phone] Daughter Meryl [phone] Pt has second home in [facility] and plans to drive self to [place] after follow up with Dr. Clay. Pt is independent in ADL's. There are no further case management d/c needs identified. Date Signed: 06/10/2017 02:55 PM Electronically Signed By:Jadyn Lennon RN Intervention Information Intervention Type:*IM-Signed Date of Service:06/10/2017 09:39 AM Patient Type:Inpatient Staff Member:SHAWNA Lennon Hillary Hours:0.25 Discipline: Severity: Comment:
--- NOTE | 2017-06-10 15:22 | GDS ---
[f rep st] DISCHARGE SUMMARY DISCHARGE DIAGNOSES: 1. Acute renal failure due to obstruction at the ureteropelvic junction of a unilateral kidney, stat us post ureteral stent. 2. Urothelial cell carcinoma, status post right nephrectomy. 3. Fziot-ih-oiaaxxj systolic congestive heart failure. Ejection fraction 42%. 4. Coronary artery disease, with known stenoses, opting for medical management only. 5. Ischemic cardiomyopathy. 6. Recurrent deep vein thrombosis with factor V Leiden. 7. Sick sinus syndrome, status post pacemaker. 8. Diabetes type 2. 9. Abdominal aortic aneurysm 3.8 cm. 10. Pulmonary nodule, needs repeat CT scan through the next 6 months. HISTORY: The patient is an 89-year-old female, who presented with acute renal failure. Imaging reve aled obstruction at the UPJ of her left unilateral kidney. Urology was consulted. She went to [facility] and had a ureteral stent placed. Source of obstruction is unclear, but there was no evidence of a stone. After stent placement, her acute renal failure rapidly resolved. She should follow up with Dr. Clay for further stent management. She was volume overloaded on presentation with evidence of pulmonary edema. Given her acute renal fa ilure, however, she was not given Lasix. Once her obstruction was relieved, she auto-diuresed and wa s able to wean off oxygen back to room air. She has known coronary artery disease with stenoses, and she has declined cardiac catheterization and stenting. Instead, she is treated with Ranexa and Imdu r, and has no chest pain. She has a known history of recurrent DVT and factor V Leiden. Urology requested we re-initiate Couma din today, and she will gradually return back to her therapeutic state in the next couple of days. Incidental findings on imaging included an abdominal aortic aneurysm 3.8 cm and a pulmonary nodule. Both of these require outpatient followup. DISCHARGE MEDICATIONS: Please see computerized record for full detailed list. New medications: Non e. ADDITIONAL DISCHARGE INSTRUCTIONS: 1. Follow up with Dr. Clay in 2 weeks. 2. Incidental findings on imaging requiring outpatient followup. a. Abdominal aortic aneurysm 3.8 cm. b. Pulmonary nodule. Repeat CT scan chest 3 to 6 months. Greater than 30 minutes of time was spent arranging this discharge. Patient was seen and examined by me on the day of discharge. /[id number]/MODL
[2017-06-10] MEDS ORDERED: WARFARIN SODIUM 3 MG TAB PO SCH (16:00)
== END 2017-06-10 11:20 | disposition home or self-care (01) | DRG 693 ==
LOC: F2W 20:35
PROVIDERS: ADMIT Internal Medicine; ATTEND Internal Medicine
PROC: 0TJ98ZZ Inspection of Ureter, Via Natural or Artificial Opening Endoscopic (ICD-10-PCS; principal; 2017-06-09 09:00)
PROC: BT171ZZ Fluoroscopy of Left Ureter using Low Osmolar Contrast (ICD-10-PCS; principal; 2017-06-09 09:00)
PROC: 0T778DZ Dilation of Left Ureter with Intraluminal Device, Via Natural or Artificial Opening Endoscopic (ICD-10-PCS; principal; 2017-06-09 09:00)
PROC: 0TJB8ZZ Inspection of Bladder, Via Natural or Artificial Opening Endoscopic (ICD-10-PCS; principal; 2017-06-09 09:00)
DX: N13.1 Hydronephrosis with ureteral stricture, not elsewhere classified (principal); N17.9 Acute kidney failure, unspecified; I11.0 Hypertensive heart disease with heart failure; I50.23 Acute on chronic systolic (congestive) heart failure; D68.2 Hereditary deficiency of other clotting factors; I71.4 Abdominal aortic aneurysm, without rupture; R91.1 Solitary pulmonary nodule; E11.9 Type 2 diabetes mellitus without complications; I25.10 Atherosclerotic heart disease of native coronary artery without angina pectoris; E78.5 Hyperlipidemia, unspecified; Z86.718 Personal history of other venous thrombosis and embolism; Z79.01 Long term (current) use of anticoagulants; Z90.5 Acquired absence of kidney; Z85.528 Personal history of other malignant neoplasm of kidney; Z96.643 Presence of artificial hip joint, bilateral; Z95.0 Presence of cardiac pacemaker
CPT/HCPCS: 97166-GO; C1726; C1758; C1769; C2625; G8987-GO-CI; G8988-GO-CI; G8989-GO-CI; J0360; J1956; J2370; J2405; J2704; J2765; J3010; Q9967

== ENCOUNTER 2017-06-16 21:48 | Inpatient (IN) | payer OTHER ==
--- NOTE | 2017-06-16 22:09 | CPEKG ---
Heart Rate: 67 RR Interval: 896 P-R Interval: 144 QRSD Interval: 148 QT Interval: 468 QTC Interval: 494 P [place]: 102 QRS [place]: 133 T Wave [place]: 81 EKG Severity - ABNORMAL ECG - EKG Impression: A-V DUAL-PACED RHYTHM WITH SOME INHIBITION Electronically Signed By: Nick Cabrera 17-Jun-2017 00:47:37
--- NOTE | 2017-06-16 22:36 | EDPHY ---
H & P Stated Complaint: CP left side all day Time Seen by Provider: 06/16/17 22:15 HPI/ROS: Chief Complaint: Chest tightness HPI: 89-year-old woman came home after getting some dinner tonight. When she got home she felt the urge to go to the bathroom. On her way to the bathroom she developed substernal chest pain to a 8/10. Pain radiated to her left arm pit. Mild shortness of breath. She does have a history of DVT and PE in the past. She is on warfarin. Last had her INR checked a couple months ago. No recent illness. No fevers or chills. No cough. Has noticed some increasing left ankle swelling ankle swelling as well. Abdominal pain. No nausea or vomiting. No headache. No falls or other injuries. Pain is currently about a 2 to 3/10. Patient was here a week ago and had a ureteral stent placed. She has 1 kidney secondary to renal cell cancer. My ROS PMH: Pacemaker, PE and DVT with hypercoagulable state, renal cancer status post nephrectomy, Social History: No smoking, no alcohol, no recreational drug use Family History: non-contributory Physical Exam: Gen: Awake, Alert, No Distress HEENT: Nose: no rhinorrhea Eyes: PERRLA, EOMI Mouth: Moist mucosa Neck: Supple, no JVD Chest: nontender, lungs clear to auscultation Heart: S1, S2 normal, no murmur Abd: Soft, non-tender, no guarding Back: no CVA tenderness, no midline tenderness Ext: no edema, non-tender Skin: no rash Neuro: CN II-XII intact, Sensation grossly intact, Strength 5/5 in bilateral upper and lower extremities - Personal History Current Tetanus/Diphtheria Vaccine: Yes Current Tetanus Diphtheria and Acellular Pertussis (TDAP): Yes Tetanus Vaccine Date: < 10 years - Medical/Surgical History Hx Asthma: No Hx Chronic Respiratory Disease: No Hx Diabetes: Yes Hx Cardiac Disease: No Hx Renal Disease: Yes Hx Cirrhosis: No Hx Alcoholism: No Hx HIV/AIDS: No Hx Splenectomy or Spleen Trauma: No Other PMH: HTN, Blood clots, Kidney CA, rt nephrectomy, bilateral hip replacements 2 on left and 1 on right. pacer/defib - Social History Smoking Status: Never smoked Constitutional: Initial Vital Signs Heart Rate 88 06/16/17 21:50 Respiratory Rate 16 06/16/17 21:50 Blood Pressure 176/99 H 06/16/17 21:50 O2 Sat (%) 95 06/16/17 21:50 O2 Delivery Mode Room Air Allergies/Adverse Reactions: morphine [Morphine] Allergy (Mild, Verified 01/05/17 10:13) n/v Home Medications: Medication Instructions Recorded Ergocalciferol [Vitamin D2 (*)] 50,000 unit PO HARRIS@01/05/17 Isosorbide Mononitrate [Imdur 30 30 mg PO HS 01/05/17 mg (*)] Lisinopril [Zestril 2.5 mg (*)] 2.5 mg PO DAILY@20 01/05/17 Metoprolol Tartrate [Lopressor 25 25 mg PO BID 01/05/17 mg (*)] Ranolazine [Ranexa] 500 mg PO BID 01/05/17 Warfarin Sodium [Coumadin 3MG (*)] 3 mg PO DAILY16 01/05/17 Atorvastatin Calcium [Lipitor 10 10 mg PO DAILY 06/08/17 mg (*)] glipiZIDE [Glucotrol 5 mg] 5 mg PO DAILY 06/08/17 Medical Decision Making - Diagnostics EKG Interpretation: ECG time 10:08 p.m., she has got a av dual paced rhythm. Imaging Results: Imaging Impressions Chest X-Ray 06/16/17 22:32 Impression: Significant interval improvement in the interstitial edema pattern, compared to 06/08/17. Imaging: I viewed and interpreted images myself ED Course/Re-evaluation: 89-year-old with episodes substernal chest pain. Troponin is slightly elevated at 0.55. No acute findings on a chest x-ray, ECG is pacing this uninterpretable. INR is a bit subtherapeutic at 1.6. I have discussed with Dr. Watson, hospitalist. Will admit to PCU for further evaluation. - Data Points Laboratory Results: Laboratory Results 06/16/17 21:50 06/16/17 21:50 06/16/17 06/16/17 06/16/17 21:50 21:50 21:50 WBC 5.27 10^3/uL 10^3/uL (3.80-9.50) RBC 4.26 10^6/uL 10^6/uL (4.18-5.33) Hgb 13.4 g/dL g/dL (12.6-16.3) Hct 40.0 % % (38.0-47.0) MCV 93.9 fL fL (81.5-99.8) MCH 31.5 pg pg (27.9-34.1) MCHC 33.5 g/dL g/dL (32.4-36.7) RDW 13.8 % % (11.5-15.2) Plt Count 220 10^3/uL 10^3/uL (150-400) MPV 10.2 fL fL (8.7-11.7) Neut % (Auto) 45.4 % % (39.3-74.2) Lymph % (Auto) 38.5 % % (15.0-45.0) [place] % (Auto) 12.3 % % (4.5-13.0) Eos % (Auto) 3.2 % % (0.6-7.6) Baso % (Auto) 0.2 % L % (0.3-1.7) Nucleat RBC Rel Count 0.0 % % (0.0-0.2) Absolute Neuts (auto) 2.39 10^3/uL 10^3/uL (1.70-6.50) Absolute Lymphs (auto) 2.03 10^3/uL 10^3/uL (1.00-3.00) Absolute Monos (auto) 0.65 10^3/uL 10^3/uL (0.30-0.80) Absolute Eos (auto) 0.17 10^3/uL 10^3/uL (0.03-0.40) Absolute Basos (auto) 0.01 10^3/uL L 10^3/uL (0.02-0.10) Absolute Nucleated RBC 0.00 10^3/uL 10^3/uL (0-0.01) Immature Gran % 0.4 % % (0.0-1.1) Immature Gran # 0.02 10^3/uL 10^3/uL (0.00-0.10) PT 19.3 SEC H SEC (12.0-15.0) INR 1.61 H (0.83-1.16) APTT 29.4 SEC SEC (23.0-38.0) Sodium 143 mEq/L mEq/L (135-145) Potassium 4.6 mEq/L mEq/L (3.5-5.2) Chloride 103 mEq/L mEq/L (97-110) Carbon Dioxide 26 mEq/l mEq/l (22-31) Anion Gap 14 mEq/L mEq/L (8-16) BUN 20 mg/dL mg/dL (7-23) Creatinine 0.9 mg/dL mg/dL (0.6-1.0) Estimated GFR 59 Glucose 144 mg/dL H mg/dL (70-100) Calcium 10.1 mg/dL mg/dL (8.5-10.4) Troponin I 0.055 ng/mL H ng/mL (0.000-0.034) Departure - Departure Disposition: [facility] Inpatient Acute Clinical Impression: Chest pain Condition: Fair Referrals: Patient,NotPresent [Unknown] - As per Instructions
[2017-06-16 22:43] LABS: PLATELET COUNT 220 10^3/uL (150-400)
[2017-06-16 22:51] LABS: INR 1.61 (0.83-1.16); PROTIME(PATIENT) 19.3 SEC (12.0-15.0)
[2017-06-16] MEDS ORDERED: ONDANSETRON DISINTEGRATING 4 MG TAB PO PRN (23:15)
[2017-06-16] MEDS ORDERED: ONDANSETRON 4 MG/2 ML VIAL IVP PRN (23:15)
--- NOTE | 2017-06-17 01:17 | PDGENHP ---
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 Patient was on the toilet today when she noticed sudden onset chest pain. She describes this as 5/10 with radiation to L jaw. It lasted for about 1 hour. She also noticed some new L calf swelling. She was discharged on 06/10 after treatment for ureteral obstruction with stent placement. Of note, she follows with Dr. Grimm for CAD and ICM. She has had an abnormal nuclear stress test in the past but has opted for medical management only. History Information - Allergies/Home Medication List Allergies/Adverse Reactions: morphine [Morphine] Allergy (Mild, Verified 01/05/17 10:13) n/v Home Medications: Ergocalciferol [Vitamin D2 (*)] 50,000 unit PO HARRIS@09 01/05/17 [Last Taken ] Isosorbide Mononitrate [Imdur 30 mg (*)] 30 mg PO HS 01/05/17 [Last Taken ] Lisinopril [Zestril 2.5 mg (*)] 2.5 mg PO DAILY@20 01/05/17 [Last Taken 06/08/17 ] Metoprolol Tartrate [Lopressor 25 mg (*)] 25 mg PO BID 01/05/17 [Last Taken AM] Ranolazine [Ranexa] 500 mg PO BID 01/05/17 [Last Taken 06/08/17 AM] Warfarin Sodium [Coumadin 3MG (*)] 3 mg PO DAILY16 01/05/17 [Last Taken 06/07/17 ] Atorvastatin Calcium [Lipitor 10 mg (*)] 10 mg PO DAILY 06/08/17 [Last Taken Unknown] glipiZIDE [Glucotrol 5 mg] 5 mg PO DAILY 06/08/17 [Last Taken Unknown] I have personally reviewed and updated: family history, medical history - Past Medical History coronary artery disease, cancer, CHF, diabetes type 2 - Surgical History Reports: pacemaker/AICD Additional surgical history: Ureteral stent - Family History Positive for: cancer - Social History Smoking Status: Never smoked Review of Systems Review of Systems: ROS: 10pt was reviewed & negative except for what was stated in HPI & below Physical Exam Physical Exam: Temp Pulse Resp BP Pulse Ox 36.7 C 78 18 158/98 H 92 06/17/17 00:30 06/17/17 00:30 06/17/17 00:30 06/17/17 00:30 06/17/17 00:30 Constitutional: no apparent distress, not in pain Eyes: PERRL, EOMI Ears, Nose, Mouth, Throat: moist mucous membranes, no oral mucosal ulcers Cardiovascular: regular rate and rhythym, systolic murmur Respiratory: no respiratory distress, clear to auscultation Gastrointestinal: normoactive bowel sounds, soft, non-tender abdomen Skin: warm, normal color Musculoskeletal: full muscle strength, no muscle tenderness Neurologic: AAOx3, CN II-XII Intact Psychiatric: interacting appropriately, not anxious Lab Data & Imaging Review 06/16/17 21:50 06/16/17 21:50 WBC 5.27 10^3/uL (3.80-9.50) 06/16/17 21:50 RBC 4.26 10^6/uL (4.18-5.33) 06/16/17 21:50 Hgb 13.4 g/dL (12.6-16.3) 06/16/17 21:50 Hct 40.0 % (38.0-47.0) 06/16/17 21:50 MCV 93.9 fL (81.5-99.8) 06/16/17 21:50 MCH 31.5 pg (27.9-34.1) 06/16/17 21:50 MCHC 33.5 g/dL (32.4-36.7) 06/16/17 21:50 RDW 13.8 % (11.5-15.2) 06/16/17 21:50 Plt Count 220 10^3/uL (150-400) 06/16/17 21:50 MPV 10.2 fL (8.7-11.7) 06/16/17 21:50 Neut % (Auto) 45.4 % (39.3-74.2) 06/16/17 21:50 Lymph % (Auto) 38.5 % (15.0-45.0) 06/16/17 21:50 [place] % (Auto) 12.3 % (4.5-13.0) 06/16/17 21:50 Eos % (Auto) 3.2 % (0.6-7.6) 06/16/17 21:50 Baso % (Auto) 0.2 % (0.3-1.7) L 06/16/17 21:50 Nucleat RBC Rel Count 0.0 % (0.0-0.2) 06/16/17 21:50 Absolute Neuts (auto) 2.39 10^3/uL (1.70-6.50) 06/16/17 21:50 Absolute Lymphs (auto) 2.03 10^3/uL (1.00-3.00) 06/16/17 21:50 Absolute Monos (auto) 0.65 10^3/uL (0.30-0.80) 06/16/17 21:50 Absolute Eos (auto) 0.17 10^3/uL (0.03-0.40) 06/16/17 21:50 Absolute Basos (auto) 0.01 10^3/uL (0.02-0.10) L 06/16/17 21:50 Absolute Nucleated RBC 0.00 10^3/uL (0-0.01) 06/16/17 21:50 Immature Gran % 0.4 % (0.0-1.1) 06/16/17 21:50 Immature Gran # 0.02 10^3/uL (0.00-0.10) 06/16/17 21:50 PT 19.3 SEC (12.0-15.0) H 06/16/17 21:50 INR 1.61 (0.83-1.16) H 06/16/17 21:50 APTT 29.4 SEC (23.0-38.0) 06/16/17 21:50 D-Dimer 1.68 ug/mLFEU (0.00-0.50) H 06/16/17 21:50 Sodium 143 mEq/L (135-145) 06/16/17 21:50 Potassium 4.6 mEq/L (3.5-5.2) 06/16/17 21:50 Chloride 103 mEq/L (97-110) 06/16/17 21:50 Carbon Dioxide 26 mEq/l (22-31) 06/16/17 21:50 Anion Gap 14 mEq/L (8-16) 06/16/17 21:50 BUN 20 mg/dL (7-23) 06/16/17 21:50 Creatinine 0.9 mg/dL (0.6-1.0) 06/16/17 21:50 Estimated GFR 59 06/16/17 21:50 Glucose 144 mg/dL (70-100) H 06/16/17 21:50 Calcium 10.1 mg/dL (8.5-10.4) 06/16/17 21:50 Troponin I 0.055 ng/mL (0.000-0.034) H 06/16/17 21:50 Imaging Review: Imaging Impressions Chest X-Ray 06/16/17 22:32 Impression: Significant interval improvement in the interstitial edema pattern, compared to 06/08/17. Visualized and Interpreted Chest x-ray results: Yes Visualized and Interpreted EKG results: Yes EKG Interpretation: Positive for: other (V-paced rhythm) Assessment & Plan Assessment: 89 yo F w/ urothelial cell CA, recent ureteral obstruction, CAD, ICM, FVL, and NIDDM presents with chest pain. Plan: 1. Chest pain - Isolated episode while going to the bathroom. Pain radiated to L neck and lasted for about 1 hour. Troponin indeterminate in ED (.055) and ECG V-paced so difficult to interpret for ischemia. D-dimer elevated. Patient currently chest pain free. Of note, she has had an abnormal nuclear stress test in the past but opted for medical therapy only. She is followed by Dr. Grimm as an outpatient. Noting elevated D-dimer, subtherapeutic INR, and hx of FVL, PE is another possible explanation for chest pain. - Admit to PCU for observation - Monitor on telemetry, trend cardiac enzymes - Will consult cardiology to help guide next step noting patient has opted for non-invasive strategy in the past despite abnormal stress test 2. Elevated D-dimer - With complaints of L calf swelling starting today. Patient has history of FVL and subtherapeutic INR on admission. Warfarin was also held in holger-procedural setting for ureteral stent placed 2 weeks ago. Vital signs stable, on room air. - Check LLE ultrasound - Will not pursue CTPE noting patient only has one functioning kidney and is already on lifelong anticoagulation. Diagnosis of DVT(and presumed PE) would help isolate etiology of chest pain. 3. Hx of CAD, ICM - Last EF 42%, appears euvolemic on exam. CAD medically managed with statin, Ranexa, Imdur, and metoprolol. - Acute management as above 4. Hx of FVL, multiple VTEs - On warfarin for anticoagulation although subtherapeutic on admission. AC was held during recent admission for ureteral stent placement. - If new DVT, will bridge until INR>2 - Monitor daily INR 5. 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 Had ureteral stent place during recent admission for obstruction. Renal function WNL on admission. 6. T2DM - Sensitive SSI while inpatient. 7. SSS - s/p PPM. Diet - NPO pending ACS r/o Code - Full Ppx - LMWH until INR therapeutic Dispo - Admit to PCU under observation status
[2017-06-17] MEDS ORDERED: D50W 25 GM/50 ML SYR IVP PRN (01:36)
[2017-06-17] MEDS ORDERED: D50W 25 GM/50 ML VIAL IVP PRN (02:00)
[2017-06-17 04:32] LABS: PLATELET COUNT 196 10^3/uL (150-400)
[2017-06-17 04:41] LABS: INR 1.73 (0.83-1.16); PROTIME(PATIENT) 20.4 SEC (12.0-15.0)
[2017-06-17] MEDS ORDERED: HEPARIN 10,000 UNIT/10 ML MDV (1,000 UNIT/ML) IVP PRN (06:33)
[2017-06-17] MEDS ORDERED: HEPARIN 10,000 UNIT/10 ML MDV (1,000 UNIT/ML) IVP ONE (06:33)
[2017-06-17] MEDS ORDERED: HEPARIN/DEXTROSE 500 ML IV SCH (06:45)
--- NOTE | 2017-06-17 08:58 | HOSPPROG ---
Hospitalist Progress Note Assessment/Plan: * Non-STEMI -troponin up to 7, chest pain free -opted for med mgmt only in past, now desires cardiac cath -IV heparin -NPO for cath * CAD - known + stress test * Chronic systolic CHF - EF 42% * Recurrent DVT - Factor V Leiden -INR subtherapeutic - US pending rule out DVT * Urothelial cell cancer s/p right nephrectomy * Left ureteral obstruction s/p recent stent * SSS s/p PCM * DM II Subjective: No more CP since initial event Objective: Vital Signs Temp Pulse Resp BP Pulse Ox 36.6 C 66 14 151/96 H 95 06/17/17 07:49 06/17/17 07:49 06/17/17 07:49 06/17/17 07:49 06/17/17 07:49 Laboratory Results 06/17/17 03:30 06/17/17 03:30 PT 20.4 SEC (12.0-15.0) H 06/17/17 03:30 INR 1.73 (0.83-1.16) H 06/17/17 03:30 EKG viewed, my personal interpretation is - paced rhythm CXR - negative, CHF resolved - Physical Exam Constitutional: no apparent distress, appears nourished, not in pain Cardiovascular: regular rate and rhythym, no murmur, rub, or gallop Respiratory: no respiratory distress, no rales or rhonchi, clear to auscultation Gastrointestinal: normoactive bowel sounds, soft, non-tender abdomen, no palpable masses Skin: no rashes or abrasions, no fluctuance, no induration Neurologic: AAOx3, sensation intact bilaterally Psychiatric: interacting appropriately, not anxious, not encephalopathic, thought process linear ICD10 Worksheet Patient Problems: Problems Problem Status Onset Chest pain Acute Abdominal pain Acute Acute renal injury Acute Ureterolithiasis Acute
[2017-06-17] MEDS ORDERED: ENOXAPARIN 40 MG/0.4 ML SYR SC SCH (09:00)
[2017-06-17] MEDS ORDERED: LIDOCAINE 1% 300 MG/30 ML SDV ONE (09:32)
[2017-06-17] MEDS ORDERED: IOPAMIDOL (ISOVUE-370) 150 ML BTL IV ONE (09:33)
[2017-06-17] MEDS ORDERED: MIDAZOLAM 2 MG/2 ML VIAL ONE (09:33)
[2017-06-17] MEDS ORDERED: fentaNYL 100 MCG/2 ML INJ ONE (09:33)
--- NOTE | 2017-06-17 09:37 | PDMN ---
Medical Necessity Medical necessity: C/M review: est. > 2 MN LOS for eval and TX of acute NSTEMI , troponin up to 7, requiring planned 06/17/2017 cardiac catheterization, ongoing IV Heparin infusion, cardiac monitoring, comorbid CAD with known positive stress test, patient opted for medical management only in the past, chronic systolic CHF, recurrent DVT, Factor V Leiden, type II diabetes, history of urothelial cell cancer S/P right nephrectomy, sick sinus syndrome S/P permanent pacemaker placement per 06/17/2017 Hospitalist progress note.
[2017-06-17] MEDS: INSULIN LISPRO 100 UNIT/ML SC SCH ×3 (10:59→18:16)
[2017-06-17] MEDS: ASPIRIN EC 81 MG TAB PO SCH (12:23)
--- NOTE | 2017-06-17 12:27 | ASMTCMCOM ---
CM Note CM Note Notes: 89 yr old female admitted for CP. Recent discharge after Urethelial Cell CA-Ureteral obs-stent. She has a hx of CAD, CHF, DM-2, Pacer/defibrilator. Patient's daughter lives with her and numerous family members in area for support. Therapies have not yet evaluated, may not need to. Oriented and moving in room. May not have discharge needs. Date Signed: 06/17/2017 12:26 PM Electronically Signed By:Jaida North LCSW
--- NOTE | 2017-06-17 13:36 | GCON ---
[f rep st] CONSULTATION CARDIOLOGY CONSULTATION DATE OF CONSULTATION: 06/17/2017 REFERRING PHYSICIAN: Dimas Watson MD INDICATION FOR CONSULTATION: Chest pain, elevated troponin, paced rhythm. Known history of coronary artery disease. HISTORY OF PRESENT ILLNESS: The patient is a pleasant 89-year-old female, well known to [facility] and is closely followed by Dr. David Grimm. She has a known history of ischemic cardiomyopathy with most recent echocardiogram demonstrating LVEF of 30%. She has a known history of coronary artery disease, ICD primary prevention in the setting of ischemic cardiomyopathy , history of factor V Leiden, type 2 diabetes, essential hypertension, history of renal cell carcinoma, status post right nephrectomy, and recent admission for acute renal failure in the setting of obstruction of the left kidney, thought to be due to obstruction of the ureteropelvic junction of unclear etiology. She did undergo successful left ureteral stent 4.7 Serbian x 24 cm long on 06/09/2017, with Dr. Clay, in the setting of moderate to severe left hydronephrosis, and acute on chronic renal failure. She is scheduled to follow up with Dr. Clay in the next 2 weeks. Of note, she had been off Coumadin in anticipation of procedure. Her presentation today with subtherapeutic INR of approximately 1.7. The patient presented to [facility] yesterday in the setting of developing an episode of acute chest discomfort while on the toilet urinating. She describes 5/10 substernal chest pressure that radiated to her left shoulder and jaw. She states the symptoms lasted for approximately 45 minutes and resolved spontaneously. She had no other associated symptoms. She denied any associated nausea, vomiting, diaphoresis, shortness of breath, dyspnea, palpitations, dizziness, lightheadedness, near syncope, or syncope. Her ECG on admission demonstrates AV paced rhythm. Initial troponin was mildly elevated at 0.55, with repeat troponin of 7.22. She has remained pain free upon her arrival to [facility] and hemodynamically stable, in a paced rhythm. She was started on a heparin drip. She has developed some hematuria this morning, which has resulted in discontinuation of heparin. At the time of my exam, she is resting comfortably. She is interactive. She has no cardiac complaints and feels at her baseline. In reviewing her records, she does have a known history of coronary artery disease. There is documentation of history of ischemia on previous nuclear study. Patient has not been interested in pursuing diagnostic left heart catheterization in the past. However, today she states she would consider heart catheterization if we felt that this was necessary. PAST MEDICAL HISTORY: 1. Coronary artery disease. 2. Ischemic cardiomyopathy. 3. Primary prevention, ICD in place. 4. Hypertension. 5. Hyperlipidemia. 6. Diabetes. 7. Factor V Leiden with recurrent DVT, on chronic anticoagulation with Coumadin. 8. History of right renal cell carcinoma, status post right nephrectomy. 9. Recent history of admission with left ureteral obstruction of unclear etiology, with acute renal failure, requiring ureteral stent deployment on June 09, [address] Clay. 10. Ischemic cardiomyopathy with LVEF of approximately 30%. MEDICATIONS ON ADMISSION: Include isosorbide 30 mg once daily, lisinopril 2.5 mg daily, metoprolol tartrate 25 mg p.o. b.i.d., Ranexa 500 mg p.o. b.i.d., atorvastatin 10 mg daily, warfarin 3 mg daily and glipizide 5 mg daily. ALLERGIES TO MEDICATIONS: Include morphine. SOCIAL HISTORY: She is . She is a former smoker. FAMILY HISTORY: Noncontributory. PHYSICAL EXAMINATION: VITAL SIGNS: Blood pressure 151/96, heart rate of 66, in AV paced rhythm, oxygen saturation 95% on room air, temperature 36.6. GENERAL: She is awake, alert, oriented, appropriate, and interactive. She is asymptomatic, and no chest discomfort. There is no evidence of JVP or carotid bruits. CARDIAC: S1, S2. Paced rhythm. No murmurs, rubs, or gallops. LUNGS : Clear to auscultation bilaterally. ABDOMEN: Soft, nontender, nondistended. There is no pulsatile mass or abdominal bruit. EXTREMITIES: She has trace left ankle edema. Distal pulses are intact. Feet are warm. No evidence of cyanosis, clubbing or edema. DATA: Sodium 141, potassium 4.3, creatinine of 0.9, estimated GFR 59, glucose 200, magnesium 1.7. Initial troponin 0.055, trending to 7.22, and most recent value of 19.4. ECG demonstrates AV paced rhythm. Chest x-ray demonstrates significant interval improvement in interstitial edema pattern, compared to previous chest x-ray June 08, 2017. IMPRESSION: 1. [id number] elevation myocardial infarction. 2. Known history of coronary artery disease. 3. Ischemic cardiomyopathy. 4. Recent admission this past week with acute renal failure secondary to left ureteropelvic junction obstruction, requiring 4.5 Serbian x 24 cm left ureteral stent deployment with Dr. Clay. 5. Primary prevention ICD. 6. Diabetes. 7. Abdominal aortic aneurysm measuring 3.8 cm. DISCUSSION: The patient and I had a lengthy discussion regarding the risks and benefits of diagnostic left heart catheterization. She had an episode of chest discomfort yesterday, lasting for less than an hour and resolved without intervention or medical therapy. She now feels back to baseline. She is hemodynamically stable. With onset of hematuria with heparin administration, we discussed concern for increased risk of bleeding with percutaneous coronary intervention and potential addition of dual antiplatelet therapy to chronic Coumadin therapy, in the setting of a single kidney, and a recent episode of ureteral obstruction, and stent deployment, and acute renal failure, discussed concerns for possible worsening of renal function with contrast administration. In the setting of an 89-year-old female with multiple medical comorbidities with hospitalization last week, as outlined above, with evidence of hematuria with heparinization, and the fact that she has remained pain free. I have recommended conservative medical therapy at this point with aspirin and Coumadin therapy. We will obtain complete 2D echocardiogram and assess left ventricular function. If she were to become unstable or have new onset of chest discomfort, we will reconsider plan for diagnostic left heart catheterization. Over 45 minutes was spent with patient reviewing risks and benefits of left heart catheterization and have opted for medical management at this time. 1. Continue Coumadin. 2. Initiate aspirin 81 mg daily. 3. Continue current outpatient medications. 4. Complete 2D echocardiogram. 5. We will follow serial cardiac enzymes. 6. Continue telemetry monitoring. 7. We will continue to follow along with her care. 45min spent coordinating care. /[id number]/MODL MTDD
--- NOTE | 2017-06-17 15:02 | ECHO ---
[email or web address] [address] [address] Main: [phone] Fax: Transthoracic Echocardiogram Name: REGIS PRITCHETT MR#: [id number] Study Date: 06/17/2017 Study Time: 11:41 AM Date of : 1925 Age: 89 year(s) Height: 157.5 cm (62 in.) Weight: 63.96 kg (141 lb.) BSA: 1.65 m2 Gender: Female Examination: Echo Indication: Eval EF, Pacer Image Quality: Contrast: Requested by: Dimas Mary BP: 151 mmHg/96 mmHg Heart Rate: Rhythm: Indication: Eval EF, Pacer Procedure Staff Police Justice: Roberta Crane AMANDA Reading Physician: Luis Jauregui MD Requesting Provider: Conclusions: Mild concentric LV hypertrophy. Mildly reduced systolic LV function. The ejection fraction is estimated to be 40-45 %. LV septal motion consistent with conduction abnormality. LV apex appears slightly hypokinetic. LV base inferior wall appears hypokinetic. . Normal size right ventricle. The left atrium is severely dilated. The right atrium is normal in size. No aortic valve stenosis is present. The pulmonary artery pressure is mildly increased. RVSP is 43mmHG.. No pericardial effusion. Measurements: Chambers Valvular Assessment AV/MV Valvular Assessment TV/PV Normal Normal Normal Name Value Range Name Value Range Name Value Range Ao Diamond (MM): 3.0 cm (2.2 cm-3.7 AV meanP mmHg ( - ) TR Vmax: 3.07 mm/s ( - ) cm) MV E Vmax: 0.80 m/s ( - ) TR PGmax: 38 mmHg ( - ) IVSd (2D): 1.1 cm (0.6 cm-1.1 MV A Vmax: 0.74 m/s ( - ) syst. PAP: 43 mmHg ( - ) cm) MV E/A: 1.08 ( - ) LVDd (2D): 5.0 cm (3.9 cm-5.3 cm) LVDs (2D): 3.5 cm (2.1 cm-4 cm) LVPWd (2D): 1.0 cm ( - ) LVEF (MOD4): 52 % (>=55 %) EF Range: 40-45 % Continued Measurements: Patient: REGIS PRITCHETT Study Date: 06/17/2017 Page 1 of 2 11:41 AM Chambers Valvular Assessment AV/MV Valvular Assessment TV/PV Name Value Name Value Name Value LADs: 4.3 cm MV E/E' Septal: 21.50 CVP (est.): 5 mmHg LADs Lon.8 cm MV E/E' Lateral: 11.20 LA Area: 25.9 cm2 Findings: Left Ventricle: Normal size left ventricle. Mild concentric LV hypertrophy. Mildly reduced systolic LV function. The ejection fraction is estimated to be 40-45 %. Diastolic dysfunction is present. . LV septal motion consistent with conduction abnormality. LV apex appears slightly hypokinetic. LV base inferior wall appears hypokinetic. . Right Ventricle: Normal size right ventricle. Normal RV function. There is a pacemaker lead noted in the right ventricle. Left Atrium: The left atrium is severely dilated. Right Atrium: The right atrium is normal in size. Mitral Valve: Severe mitral annular calcification. There is mild thickening of the mitral valve leaflets. Trivial mitral valve regurgitation. Aortic Valve: Moderate aortic cusp calcification is present. The aortic valve is tri-leaflet. No aortic valve stenosis is present. Tricuspid Valve: The tricuspid valve is normal in appearance and function. Mild tricuspid regurgitation is present. The pulmonary artery pressure is mildly increased. RVSP is 43mmHG.. Pulmonic Valve: The pulmonic valve is normal in appearance and function. Trivial pulmonic valve regurgitation. Aorta: The aorta is normal. Pericardium: No pericardial effusion. (No Signature Object) Patient: REGIS PRITCHETT Study Date: 06/17/2017 Page 2 of 2 11:41 AM [id number]
[2017-06-17] MEDS ORDERED: METOPROLOL TARTRATE 5 MG/5 ML INJ IVP ONE (16:01)
[2017-06-17] MEDS ORDERED: hydrALAZINE 20 MG/ML VIAL IVP PRN (16:02)
[2017-06-17] MEDS: WARFARIN SODIUM 3 MG TAB PO SCH (16:44)
[2017-06-17] MEDS: METOPROLOL TARTRATE 25 MG TAB PO SCH (20:37)
[2017-06-17] MEDS: ISOSORBIDE MONONITRATE 30 MG TAB.SR PO SCH (20:37)
[2017-06-17] MEDS: RANOLAZINE 500 MG TAB.ER PO SCH (20:37)
[2017-06-17] MEDS: LISINOPRIL 2.5 MG TAB PO SCH (20:37)
[2017-06-18 04:08] LABS: PLATELET COUNT 196 10^3/uL (150-400)
[2017-06-18 05:03] LABS: INR 1.98 (0.83-1.16); PROTIME(PATIENT) 22.6 SEC (12.0-15.0)
[2017-06-18] MEDS: ATORVASTATIN CALCIUM 10 MG TAB PO SCH (09:30)
[2017-06-18] MEDS: ASPIRIN EC 81 MG TAB PO SCH (09:30)
[2017-06-18] MEDS: METOPROLOL TARTRATE 25 MG TAB PO SCH ×2 (09:30→20:42)
[2017-06-18] MEDS: glipiZIDE 5 MG TAB PO SCH (09:30)
[2017-06-18] MEDS: INSULIN LISPRO 100 UNIT/ML SC SCH ×3 (09:30→19:33)
[2017-06-18] MEDS: RANOLAZINE 500 MG TAB.ER PO SCH ×2 (09:30→20:42)
--- NOTE | 2017-06-18 11:44 | PDCARPN ---
Cardiology Progress Note Chief Complaint: No cardiovascular complaints were voiced today Assessment/Plan: Assessment: Patient is an 89 y/o female with history of CAD, ischaemic CMP (EF of 40-45% by echo), HTN, HLP, DM, factor V Leiden deficiency, renal cell carcinoma s/p nephrectomy (right), and non Q wave myocardial infarction (recently), with desires for optimization of medical therapy (and not pursuit of invasive left heart catheterization given comorbidities). According to the patient, and Dr. Rajesh Jauregui, this is the plan. The patient has not cardiovascular complaints - no chest pains or pressure, no PND or orthopnea. Patient was sitting up reading the newspaper this morning. Plan: (1) Optimization of medical therapy (2) Would continue therapy on coumadin for history of factor V leiden (3) Lopressor and Zestril should continue for HTN management assistance - care with history of renal insufficiency and ACEi therapy (4) ASA therapy is indicated for CV risks (5) Statins should continue for HLP, and maintain annual assessment of cholesterol and LFTs (6) Aggressive DM therapy should continue (7) Ranexa to continue for past history as at present (8) Will continue to follow patient while in house should there be changes to status, changes in our plan of care will occur as well Subjective: No cardiovascular complaints Reviewed/Discussed With: hospitalist, multidisciplinary team Objective: Vital Signs (8 Hrs) Temp Pulse Resp BP Pulse Ox 06/18/17 08:55 36.7 C 69 18 130/74 H 94 06/18/17 04:25 36.7 C 70 17 104/55 L 92 Intake/Output (24 Hrs) 06/17/17 06/18/17 06/19/17 05:59 05:59 05:59 Intake Total 735 Output Total 475 Balance 260 Intake: Oral (ml) 690 IV Intake (ml) 0 IV Infused (ml) 45 Heparin/Dextrose 500 ml @ 45 Per Protocol IV CONT CARLOS Rx#:[id number] Output: Urine (ml) 475 Bedside Commode 475 Other: Intake Quantity Yes Sufficient Number of Voids Bedside Commode 6 Number of Stools Bedside Commode 1 Result Diagrams: 06/18/17 03:10 06/18/17 03:10 Cardiac Labs: Cardiac Lab Results (72 Hrs) 06/18/17 06/17/17 06/17/17 03:10 17:58 12:44 Troponin I 13.000 H 17.800 H 22.300 H 06/17/17 09:30 Troponin I 19.400 H Telemetry: AV sequential pacing - Physical Exam Constitutional: WDWN, healthy appearing, no apparent distress Eyes: PERRL, EOMI Ears, Nose, Mouth, Throat: moist mucous membranes Cardiovascular: regular rate and rhythm, pulses symmetric bilat, No jugular vein distention Peripheral Pulses: 2+: dorsalis-pedis (R), dorsalis-pedis (L) Respiratory: clear to auscultate bilat, no crackles Gastrointestinal: normoactive bowel sounds Skin: no rashes, no edema Musculoskeletal: no muscular tenderness Neurologic: AAOx3, CN II-XII grossly intact Psychiatric: cooperative, interactive, following commands ICD10 Worksheet Patient Problems: Problems Problem Status Onset Chest pain Acute chronic disease mgmt/transitional care Acute Abdominal pain Acute Acute renal injury Acute Ureterolithiasis Acute
--- NOTE | 2017-06-18 13:53 | HOSPPROG ---
Hospitalist Progress Note Assessment/Plan: * Non-STEMI -opted for medical management -if recurrent CP, consider cath -ASA, metoprolol, statin, lisinopril -didn't tolerate IV heparin due to increased hematuria * CAD - known + stress test * Chronic systolic CHF - EF 42% * Recurrent DVT - Factor V Leiden -INR subtherapeutic on presentation - now improved * Urothelial cell cancer s/p right nephrectomy * Left ureteral obstruction s/p recent stent * SSS s/p PCM * DM II Subjective: No events, walking without CP, unsteady on feet Objective: Vital Signs Temp Pulse Resp BP Pulse Ox 36.8 C 66 12 120/67 94 06/18/17 12:35 06/18/17 12:35 06/18/17 12:35 06/18/17 12:35 06/18/17 12:35 Laboratory Results 06/18/17 03:10 06/18/17 03:10 06/17/17 06/18/17 06/19/17 05:59 05:59 05:59 Intake Total 735 Output Total 475 125 Balance 260 -125 PT 22.6 SEC (12.0-15.0) H 06/18/17 03:10 INR 1.98 (0.83-1.16) H 06/18/17 03:10 - Physical Exam Constitutional: no apparent distress, appears nourished, not in pain Cardiovascular: regular rate and rhythym, no murmur, rub, or gallop Respiratory: no respiratory distress, no rales or rhonchi, clear to auscultation Gastrointestinal: normoactive bowel sounds, soft, non-tender abdomen, no palpable masses Skin: no rashes or abrasions, no fluctuance, no induration Neurologic: AAOx3, sensation intact bilaterally Psychiatric: interacting appropriately, not anxious, not encephalopathic, thought process linear ICD10 Worksheet Patient Problems: Problems Problem Status Onset Chest pain Acute chronic disease mgmt/transitional care Acute Abdominal pain Acute Acute renal injury Acute Ureterolithiasis Acute
[2017-06-18] MEDS: ACETAMINOPHEN 325 MG TAB PO PRN (16:07)
[2017-06-18] MEDS: WARFARIN SODIUM 3 MG TAB PO SCH (16:08)
--- NOTE | 2017-06-18 17:05 | ASMTCMCOM ---
CM Note CM Note Notes: PT recommending home w/24 hr supervison vs SNF. Met w/pt and daughters Libra and Meryl. Pt lives w/Libra and also grand daughter and grandson. Pt and Libra said there can be someone there 06/11 initially. Pt does not feel need for SNF, says she has lot's of family around and very good support. I offered HHC but pt also did not feel she need sthis as her grand daughter that lives w/her is an RN and she has someone she can call for PT. She said she is also able to call her PCP, Dr Ness, at any time of day/night. At this point no CM needs, but will follow. Date Signed: 06/18/2017 05:04 PM Electronically Signed By:Maria R Mason RN
[2017-06-18] MEDS: LISINOPRIL 2.5 MG TAB PO SCH (20:41)
[2017-06-18] MEDS: ISOSORBIDE MONONITRATE 30 MG TAB.SR PO SCH (20:42)
--- NOTE | 2017-06-18 23:33 | HOSPPROG ---
Hospitalist Progress Note Assessment/Plan: Patient with recurrent fevers this evening. Only symptom was dysuria yesterday. VSS stable, still on RA. UA reflective of inflammation, likely from stent, and not clearly infectious. However, due to lack of alternate source, will empirically start Ceftriaxone and await culture results. Objective: Vital Signs Temp Pulse Resp BP Pulse Ox 36.4 C 63 17 132/63 H 95 06/18/17 20:51 06/18/17 20:51 06/18/17 20:51 06/18/17 20:51 06/18/17 20:51 Microbiology 06/18/17 16:19 Respiratory Panel (PCR) - Final Nasal, Sinus - Swab No Organism Detected Laboratory Results 06/18/17 03:10 06/18/17 03:10 06/17/17 06/18/17 06/19/17 05:59 05:59 05:59 Intake Total 735 1075 Output Total 475 775 Balance 260 300 PT 22.6 SEC (12.0-15.0) H 06/18/17 03:10 INR 1.98 (0.83-1.16) H 06/18/17 03:10 ICD10 Worksheet Patient Problems: Problems Problem Status Onset Chest pain Acute chronic disease [facility]/transitional care Acute Abdominal pain Acute Acute renal injury Acute Ureterolithiasis Acute
[2017-06-19] MEDS: ACETAMINOPHEN 325 MG TAB PO PRN (03:50)
[2017-06-19 04:19] LABS: PLATELET COUNT 177 10^3/uL (150-400)
[2017-06-19 04:47] LABS: INR 2.01 (0.83-1.16); PROTIME(PATIENT) 22.8 SEC (12.0-15.0)
[2017-06-19] MEDS: METOPROLOL TARTRATE 25 MG TAB PO SCH ×2 (09:53→22:09)
[2017-06-19] MEDS: ATORVASTATIN CALCIUM 10 MG TAB PO SCH (09:53)
[2017-06-19] MEDS: glipiZIDE 5 MG TAB PO SCH (09:53)
[2017-06-19] MEDS: ASPIRIN EC 81 MG TAB PO SCH (09:53)
[2017-06-19] MEDS: RANOLAZINE 500 MG TAB.ER PO SCH ×2 (09:53→22:08)
[2017-06-19] MEDS: INSULIN LISPRO 100 UNIT/ML SC SCH ×3 (11:48→19:09)
[2017-06-19] MEDS ORDERED: VANCOMYCIN 750 MG in D5W 150 ML IV SCH (14:30)
--- NOTE | 2017-06-19 14:53 | PDCARPN ---
Cardiology Progress Note Chief Complaint: Patient with complaints of suprapubic discomfort today. Furthermore, there was blood noted in her urine today Assessment/Plan: Assessment: 06-19-17 Patient reports that she is feeling well today, but did have complaints of "breaking a fever this morning". Suprapubic discomfort has been noted, and there was blood in urine. No chest pains or pressure. No PND or orthopnea. Patient voiced that she is not feeling as well as she did yesterday, but her symptoms do not sound CV related. Ongoing work up for UTI (from review of chart ). 06-18-17 Patient is an 89 y/o female with history of CAD, ischaemic CMP (EF of 40-45% by echo), HTN, HLP, DM, factor V Leiden deficiency, renal cell carcinoma s/p nephrectomy (right), and non Q wave myocardial infarction (recently), with desires for optimization of medical therapy (and not pursuit of invasive left heart catheterization given comorbidities). According to the patient, and Dr. Rajesh Jauregui, this is the plan. The patient has not cardiovascular complaints - no chest pains or pressure, no PND or orthopnea. Patient was sitting up reading the newspaper this morning. Plan: (1) ASA should continue with CV risks profile (2) Coumadin is needed given history of Factor V Leiden deficiency (3) Ranexa should continue for noted history (4) Lopressor and Zestril should continue as at present (5) Statins to continue for HLP, and maintain annual assessment of cholesterol and LFTs (6) Aggressive DM management should continue. (7) Suspect UTI given signs and symptoms. We will continue to follow this patient. Subjective: No cardiovascular complaints, but suprapubic discomfort is noted today Reviewed/Discussed With: multidisciplinary team Objective: Vital Signs (8 Hrs) Temp Pulse Resp BP Pulse Ox 06/19/17 13:12 37.8 C 06/19/17 11:30 36.9 C 80 20 153/79 H 95 06/19/17 08:00 36.6 C 64 16 113/66 95 Intake/Output (24 Hrs) 06/18/17 06/19/17 06/20/17 05:59 05:59 05:59 Intake Total 735 1325 Output Total 475 1575 Balance 260 -250 Intake: Oral (ml) 690 1275 IV Intake (ml) 0 50 IV Infused (ml) 45 Heparin/Dextrose 500 ml @ 45 Per Protocol IV CONT CARLOS Rx#:[id number] Output: Urine (ml) 475 1575 Bedside Commode 475 Toilet 1575 Other: Weight 61.9 kg Intake Quantity Yes Yes Sufficient Number of Voids Bedside Commode 6 Toilet 1 Number of Stools Bedside Commode 1 Toilet 1 Result Diagrams: 06/19/17 03:28 06/19/17 03:28 Cardiac Labs: Cardiac Lab Results (72 Hrs) 06/18/17 06/17/17 06/17/17 03:10 17:58 12:44 Troponin I 13.000 H 17.800 H 22.300 H 06/17/17 09:30 Troponin I 19.400 H Telemetry: AV pacing - Physical Exam Constitutional: WDWN, healthy appearing, no apparent distress Eyes: PERRL, EOMI Ears, Nose, Mouth, Throat: moist mucous membranes Cardiovascular: regular rate and rhythm, systolic murmur Peripheral Pulses: 2+: dorsalis-pedis (R), dorsalis-pedis (L) Respiratory: clear to auscultate bilat, no crackles, no wheezes Gastrointestinal: normoactive bowel sounds Genitourinary: suprapubic full/tender Skin: no edema Musculoskeletal: no muscular tenderness, no joint effusions Neurologic: AAOx3, CN II-XII grossly intact Psychiatric: cooperative, interactive, following commands ICD10 Worksheet Patient Problems: Problems Problem Status Onset Chest pain Acute chronic disease mgmt/transitional care Acute Abdominal pain Acute Acute renal injury Acute Ureterolithiasis Acute
[2017-06-19] MEDS: WARFARIN SODIUM 3 MG TAB PO SCH (15:26)
[2017-06-19] MEDS: VANCOMYCIN 750 MG in NS 150 ML IV SCH (16:23)
--- NOTE | 2017-06-19 17:58 | HOSPPROG ---
Hospitalist Progress Note Assessment/Plan: * Non-STEMI -opted for medical management -if recurrent CP, consider cath -ASA, metoprolol, statin, lisinopril -didn't tolerate IV heparin due to increased hematuria * CAD - known + stress test * Chronic systolic CHF - EF 42% * Recurrent DVT - Factor V Leiden -INR subtherapeutic on presentation - now improved * Urothelial cell cancer s/p right nephrectomy * Left ureteral obstruction s/p recent stent * SSS s/p PCM * DM II * S aureus bacteremia -IV Vanco -consult ID -? source Subjective: c/o suprapubic pain Objective: Vital Signs Temp Pulse Resp BP Pulse Ox 37.3 C 66 20 124/66 H 94 06/19/17 16:00 06/19/17 16:00 06/19/17 16:00 06/19/17 16:00 06/19/17 16:00 Microbiology 06/18/17 18:24 Blood Panel (PCR) - Final Blood S.aureus Methicillin Suscept. 06/18/17 16:19 Respiratory Panel (PCR) - Final Nasal, Sinus - Swab No Organism Detected Laboratory Results 06/19/17 03:28 06/19/17 03:28 06/18/17 06/19/17 06/20/17 05:59 05:59 05:59 Intake Total 735 1325 200 Output Total 475 1575 Balance 260 -250 200 PT 22.8 SEC (12.0-15.0) H 06/19/17 03:28 INR 2.01 (0.83-1.16) H 06/19/17 03:28 CXR viewed, my personal interpretation is - no infiltrate abd US - renal stent without recurrent obstruction - Physical Exam Constitutional: no apparent distress, appears nourished, not in pain Cardiovascular: regular rate and rhythym, no murmur, rub, or gallop Respiratory: no respiratory distress, no rales or rhonchi, clear to auscultation Gastrointestinal: normoactive bowel sounds, soft, non-tender abdomen, no palpable masses Skin: no rashes or abrasions, no fluctuance, no induration Neurologic: AAOx3, sensation intact bilaterally Psychiatric: interacting appropriately, not anxious, not encephalopathic, thought process linear ICD10 Worksheet Patient Problems: Problems Problem Status Onset Chest pain Acute chronic disease [facility]/transitional care Acute Abdominal pain Acute Acute renal injury Acute Ureterolithiasis Acute
[2017-06-19] MEDS: ISOSORBIDE MONONITRATE 30 MG TAB.SR PO SCH (22:08)
[2017-06-19] MEDS: LISINOPRIL 2.5 MG TAB PO SCH (22:16)
[2017-06-20] MEDS: ACETAMINOPHEN 325 MG TAB PO PRN (04:19)
[2017-06-20 05:36] LABS: PLATELET COUNT 165 10^3/uL (150-400)
[2017-06-20 05:44] LABS: INR 2.16 (0.83-1.16); PROTIME(PATIENT) 24.1 SEC (12.0-15.0)
[2017-06-20] MEDS: RANOLAZINE 500 MG TAB.ER PO SCH ×2 (09:26→21:45)
[2017-06-20] MEDS: METOPROLOL TARTRATE 25 MG TAB PO SCH ×2 (09:27→21:45)
[2017-06-20] MEDS: ATORVASTATIN CALCIUM 10 MG TAB PO SCH (09:27)
[2017-06-20] MEDS: ASPIRIN EC 81 MG TAB PO SCH (09:27)
[2017-06-20] MEDS: glipiZIDE 5 MG TAB PO SCH (09:27)
[2017-06-20] MEDS: INSULIN LISPRO 100 UNIT/ML SC SCH ×3 (09:29→19:48)
--- NOTE | 2017-06-20 10:21 | PDCARPN ---
Cardiology Progress Note Chief Complaint: No cardiovascular complaints today (hematuria continues, but is reportedly better) Assessment/Plan: Assessment: 06-20-17 Overall, patient doing well. Suprapubic discomfort is still present, but less pronounced. No cardiovascular complaints of chest pains or pressure. PO tolerance without issues. Ongoing blood in urine. 06-19-17 Patient reports that she is feeling well today, but did have complaints of "breaking a fever this morning". Suprapubic discomfort has been noted, and there was blood in urine. No chest pains or pressure. No PND or orthopnea. Patient voiced that she is not feeling as well as she did yesterday, but her symptoms do not sound CV related. Ongoing work up for UTI (from review of chart ). 06-18-17 Patient is an 89 y/o female with history of CAD, ischaemic CMP (EF of 40-45% by echo), HTN, HLP, DM, factor V Leiden deficiency, renal cell carcinoma s/p nephrectomy (right), and non Q wave myocardial infarction (recently), with desires for optimization of medical therapy (and not pursuit of invasive left heart catheterization given comorbidities). According to the patient, and Dr. Rajesh Jauregui, this is the plan. The patient has not cardiovascular complaints - no chest pains or pressure, no PND or orthopnea. Patient was sitting up reading the newspaper this morning. Plan: (1) Coumadin should continue for history of Factor V Leiden (2) ASA should continue with CV risks profile (3) Ranexa should continue for noted history (4) Lopressor and Zestril should continue as at present (5) Statins to continue for HLP, and maintain annual assessment of cholesterol and LFTs (6) Aggressive DM management should continue. (7) Treatment for UTI has started (IV antibiotics). Subjective: No cardiovascular complaints Reviewed/Discussed With: hospitalist, multidisciplinary team Objective: Vital Signs (8 Hrs) Temp Pulse Resp BP Pulse Ox 06/20/17 09:27 66 112/56 L 06/20/17 08:00 36.6 C 62 18 94/51 L 95 06/20/17 04:00 37.4 C 60 17 135/60 H 94 Intake/Output (24 Hrs) 06/19/17 06/20/17 06/21/17 05:59 05:59 05:59 Intake Total 1325 1200 Output Total 1575 1150 Balance -250 50 Intake: Oral (ml) 1275 1000 IV Intake (ml) 50 IV Infused (ml) 200 Vancomycin 750 mg In Ns 150 150 ml @ 150 mls/hr IV Q24H [facility] Rx#:[id number] cefTRIAXone 1 GM/DEXTROSE 50 50 ml @ 100 mls/hr IV DAILY [facility] Rx#:[id number] Output: Urine (ml) 1575 1150 Bedside Commode 1150 Toilet 1575 Other: Weight 61.9 kg 62 kg Intake Quantity Yes Sufficient Number of Voids Bedside Commode 1 Toilet 1 1 Number of Stools Toilet 1 Result Diagrams: 06/20/17 05:00 06/20/17 05:00 Cardiac Labs: Cardiac Lab Results (72 Hrs) 06/18/17 06/17/17 06/17/17 03:10 17:58 12:44 Troponin I 13.000 H 17.800 H 22.300 H Telemetry: AV sequential pacing - Physical Exam Constitutional: WDWN, healthy appearing, no apparent distress Eyes: PERRL, EOMI Ears, Nose, Mouth, Throat: moist mucous membranes Cardiovascular: regular rate and rhythm, systolic murmur, pulses symmetric bilat , No jugular vein distention Peripheral Pulses: 2+: dorsalis-pedis (R), dorsalis-pedis (L) Respiratory: clear to auscultate bilat Gastrointestinal: normoactive bowel sounds Skin: no rashes, no edema Musculoskeletal: no muscular tenderness Neurologic: AAOx3, CN II-XII grossly intact Psychiatric: cooperative, interactive, following commands ICD10 Worksheet Patient Problems: Problems Problem Status Onset Chest pain Acute chronic disease [facility]/transitional care Acute Abdominal pain Acute Acute renal injury Acute Ureterolithiasis Acute
--- NOTE | 2017-06-20 12:59 | HOSPPROG ---
Hospitalist Progress Note Assessment/Plan: 89 yo female with NSTEMI, Non MRSA Staph bacteremia, Fever, and suprapubic pain presumably from acute cystitis * Non-STEMI -opted for medical management -if recurrent CP, consider cath -ASA, metoprolol, statin, lisinopril -didn't tolerate IV heparin due to increased hematuria * CAD - known + stress test * Chronic systolic CHF - EF 42% * Recurrent DVT - Factor V Leiden -INR subtherapeutic on presentation - now improved -Cont Warfarin, Pharmacy dosing * Urothelial cell cancer s/p right nephrectomy * Left ureteral obstruction s/p recent stent * suprapubic pain, improving * SSS s/p PCM * DM II * S aureus bacteremia, Fever, Possibly acute Cystitis -ID consulted, awaiting reccs -Likely does not need Vancomycin -Feels better since starting Rocephin, cont -? source * Anemia Plan: -Rocephin and need for Vanco per ID. Await reccs -cont Warfarin, monitor hematuria, for now cont with Aspirin -Cards following -monitor suprapubic pain, which she reports is improving -PT/OT -d/w nurse, cm, pharmacy. Subjective: suprapubic pain is better. Fever last night around 8 p.m. Objective: Vital Signs Temp Pulse Resp BP Pulse Ox 36.6 C 66 18 112/56 L 95 06/20/17 08:00 06/20/17 09:27 06/20/17 08:00 06/20/17 09:27 06/20/17 08:00 Microbiology 06/18/17 18:24 Blood Panel (PCR) - Final Blood S.aureus Methicillin Suscept. 06/18/17 19:18 Urine Culture - Final Urine,Clean Catch Three [place] Types Laboratory Results 06/20/17 05:00 06/20/17 05:00 06/19/17 06/20/17 06/21/17 05:59 05:59 05:59 Intake Total 1325 1200 Output Total 1575 1150 Balance -250 50 PT 24.1 SEC (12.0-15.0) H 06/20/17 05:00 INR 2.16 (0.83-1.16) H 06/20/17 05:00 - Physical Exam Constitutional: no apparent distress, not in pain Eyes: PERRL, EOMI Ears, Nose, Mouth, Throat: moist mucous membranes, hearing normal Cardiovascular: regular rate and rhythym, No JVD, No edema Respiratory: no respiratory distress, no rales or rhonchi Gastrointestinal: normoactive bowel sounds, soft, non-tender abdomen Genitourinary: no bladder fullness, other (mild ttp suprapubic area) Skin: warm Neurologic: AAOx3 Psychiatric: interacting appropriately, not anxious, not encephalopathic, thought process linear Lymph, Heme, Immunologic: No petechiae ICD10 Worksheet Patient Problems: Problems Problem Status Onset Chest pain Acute chronic disease mgmt/transitional care Acute Abdominal pain Acute Acute renal injury Acute Ureterolithiasis Acute
[2017-06-20] MEDS: VANCOMYCIN 750 MG in NS 150 ML IV SCH (16:27)
[2017-06-20] MEDS: WARFARIN SODIUM 3 MG TAB PO SCH (16:27)
[2017-06-20] MEDS: LISINOPRIL 2.5 MG TAB PO SCH (21:45)
[2017-06-20] MEDS: ISOSORBIDE MONONITRATE 30 MG TAB.SR PO SCH (21:50)
[2017-06-21 04:20] LABS: PLATELET COUNT 175 10^3/uL (150-400)
[2017-06-21 04:22] LABS: INR 2.34 (0.83-1.16); PROTIME(PATIENT) 25.6 SEC (12.0-15.0)
--- NOTE | 2017-06-21 06:31 | GCON ---
[f rep st] CONSULTATION INFECTIOUS DISEASE CONSULTATION. DATE OF CONSULTATION: 06/20/2017 REFERRING PHYSICIAN: Jaz Bravo MD REASON FOR CONSULTATION: MSSA bacteremia. HISTORY OF PRESENT ILLNESS: The patient is an 89-year-old female with a past medical history of rece nt left-sided ureteral obstruction status post stenting and prior pacemaker placement who I am asked to see in consultation for MSSA bacteremia. Patient was admitted on 06/16/[address] with [address] pain with concern for coronary etiology. Patient describes having an IV placed in her right forea rm in the field. She did not have any fever preceding hospital presentation. On 06/18/2017, she had a temperature to 38.3 which increased to 39.1 on 06/19/2017. Blood cultures were obtained on 2017 with 1 of 2 sets showing growth of methicillin-susceptible Staphylococcus aureus. Patient was s tarted empirically on antibiotics with vancomycin and ceftriaxone given fever and positive blood cult ures. Patient does note persistent pain, erythema, and swelling at prior IV site. She also has had some hematuria and lower abdominal pain which has improved with use of antibiotic therapy. She does not have any pain over her pacemaker site. She does not describe pain in either hip. She feels clin ically improved today. No recent problems with her skin or skin infection. Given the above findings , I am now asked to assist in her ongoing management. PAST MEDICAL HISTORY: Urothelial carcinoma post nephrectomy, coronary artery disease, pacemaker plac ement, recent ureteral stenting on left for left-sided hydronephrosis of unclear etiology without sto mustapha noted, congestive heart failure, type 2 diabetes. PAST SURGICAL HISTORY: Pacemaker placement, ureteral stenting, right-sided nephrectomy, bilateral hi p replacements. CURRENT MEDICATIONS: Vancomycin 750 mg IV q.24 hours, ceftriaxone 1 g IV daily, aspirin 81 mg p.o. d aily, Lipitor 10 mg p.o. daily, vitamin D two 50,000 units p.o. weekly, Glucotrol 5 mg p.o. daily, hy dralazine as needed for hypertension, insulin sliding scale, isosorbide 30 mg p.o. at bedtime, lisino pril 2.5 mg p.o. daily, metoprolol 25 mg p.o. twice daily, Ranexa 500 mg p.o. twice daily, Januvia 25 mg p.o. daily, warfarin 3 mg p.o. daily. ALLERGIES: Morphine. SOCIAL HISTORY: Patient does not smoke. She drinks alcohol infrequently on a social basis. No drug use. 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 FAMILY HISTORY: Heart disease. REVIEW OF SYSTEMS: Outside that noted in the HPI, remainder of 10 system review is unremarkable. [place] does not have dysuria, urgency, or frequency. PHYSICAL EXAMINATION: VITAL SIGNS: Temperature maximum 39.2, temperature current 37.2, heart rate 6 9, respiratory rate 16, blood pressure 143/74, oxygen saturation 94% on room air. GENERAL: Patient is well nourished, well developed, in no acute distress. She appears nontoxic. HEENT: There is no scleral icterus, conjunctival injection, or conjunctival petechiae. Oropharynx is clear without lesi ons. Dentition is in fair repair. There is no nasal discharge. There is no tenderness over the fro ntal, maxillary or mastoid area. NECK: Supple without palpable lymphadenopathy or thyromegaly. ABDIFATAH ST: Clear to auscultation bilaterally without adventitious sounds. The respiratory effort is normal . Pacemaker in the left upper chest shows no erythema or tenderness. CARDIOVASCULAR: Regular rate and rhythm with a 2/6 systolic murmur heard at the left and right upper sternal borders. ABDOMEN: S oft, mildly tender in the suprapubic region, no palpable organomegaly, bowel sounds are present. MUS CULOSKELETAL: There is no cyanosis or clubbing. There is no pain with range of motion of the hips. There is 1+ edema of the lower extremities bilaterally. The right forearm shows an approximately 4 cm area of phlebitis with a small open ulceration from which no purulence can be expressed; there is a small cord palpable; there is no expressible purulence or palpable fluctuance. SKIN: There are no stigmata of endocarditis. Skin is warm and dry to touch. NEUROLOGIC: Patient is alert and interac ts appropriately with examiner. Cranial nerves 2-12 are grossly intact. Muscle tone and bulk are no rmal. LYMPHATICS: No cervical or supraclavicular nodes palpable. LABORATORY DATA: White blood cell count 10.3, hematocrit 31.9, platelets 165, neutrophils 79%, serum creatinine 0.8, INR 2.1. Urinalysis shows 50-182 red blood cells with 25-50 white blood cells and 2 + bacteria. Blood cultures with 1 of 2 sets from 06/18/2017 showing growth of MSSA. Urine culture f rom 06/18/2017 shows 3 colony types. Echocardiogram shows EF 40-45% with mild thickening of the mitr al valve leaflets and trivial mitral regurgitation. Chest x-ray shows no consolidation. Ultrasound of the abdomen and pelvis shows no evidence of hydronephrosis or perinephric fluid. IMPRESSION: Methicillin-susceptible Staphylococcus aureus bacteremia: Most likely, this is associat ed with right forearm thrombophlebitis at site of previous IV. Other consideration would be associat ed with stent given recurrent hematuria, although urine culture is not showing growth of Staphylococc us aureus. Patient does have indwelling pacemaker and bilateral hip prostheses with risk for seeding , but no symptoms to suggest this and current findings suggest bacteremia was not high-grade with onl y 1 of 2 blood cultures being positive. RECOMMENDATIONS: 1. Ancef 1 g IV q.8 hours. 2. Discontinue vancomycin and ceftriaxone. 3. Repeat blood cultures in a.m. to assess for clearing of bacteremia. 4. Warm compresses to the right forearm and follow this clinically over time to ensure it does not e volve in drainable focus. 5. If fails to improve with above measures, then would consider noncontrast CT scan of abdomen and p odette to further assess urinary stent. Thank you for this consultation. We will continue to follow the patient with you. /[id number]/MODL
--- NOTE | 2017-06-21 08:39 | PCMIDPN ---
Assessment/Plan: # Low-grade MSSA bacteremia source likely right antecubital phlebitis underlying pacemaker in place. Another consideration for source was urinary ( she had urinary c/o that are now improved but urine cx does not correspond). Clinically improved w Fever trending down Tm 37.8 and WBC normalized --repeat blood cultures were obtained this morning and when-48 hours PICC line can be placed --re-reviewed PICC line placement with patient at bedside, place 06/23 if blood cx negative --CrCl around 40-50, would dose cefazolin 2gm IV q12 for blood stream infection. If planned to come to infusion center could change to ceftriaxone 2gm IV daily for ease of administration --plan 4 weeks of therapy, stop date 07/19/17 Micro 06/18 blood cx 04/17 MSSA Subjective: dysuria resolved no diarrhea no rash or itching Objective: Vital Signs Temp Pulse Resp BP Pulse Ox 37.8 C 69 18 112/51 L 93 06/21/17 08:00 06/21/17 08:00 06/21/17 08:00 06/21/17 08:00 06/21/17 08:00 Microbiology 06/18/17 18:24 Blood Panel (PCR) - Final Blood S.aureus Methicillin Suscept. 06/18/17 19:18 Urine Culture - Final Urine,Clean Catch Three [place] Types Laboratory Results 06/21/17 03:00 06/20/17 05:00 06/20/17 06/21/17 06/22/17 05:59 05:59 05:59 Intake Total 1200 880 Output Total 1150 550 Balance 50 330 - Physical Exam General Appearance: alert, no apparent distress, non-toxic Respiratory: lungs clear, No accessory muscle use Cardiac/Chest: regular rate, rhythm, No systolic murmur Extremities: other (mild phlebitis R anticubital), No pedal edema Skin: No rash, No embolic lesions Neuro/Psych: alert, normal mood/affect, oriented x 3 - Time Spent With Patient Time Spent with Patient: greater than 25 minutes Time Spent with Patient: Greater than 25 minutes spent on this patients care, greater than 50% of time spent counseling, educating, and coordinating care regarding the above mentioned plan. ICD10 Worksheet Patient Problems: Problems Problem Status Onset Chest pain Acute chronic disease mgmt/transitional care Acute Abdominal pain Acute Acute renal injury Acute Ureterolithiasis Acute
[2017-06-21] MEDS: INSULIN LISPRO 100 UNIT/ML SC SCH ×3 (09:20→18:46)
[2017-06-21] MEDS: RANOLAZINE 500 MG TAB.ER PO SCH ×2 (09:21→21:14)
[2017-06-21] MEDS: ATORVASTATIN CALCIUM 10 MG TAB PO SCH (09:21)
[2017-06-21] MEDS: ASPIRIN EC 81 MG TAB PO SCH (09:21)
[2017-06-21] MEDS: glipiZIDE 5 MG TAB PO SCH (09:21)
[2017-06-21] MEDS: METOPROLOL TARTRATE 25 MG TAB PO SCH ×2 (09:21→21:14)
[2017-06-21] MEDS ORDERED: ceFAZolin 2 GM/DEXTROSE 100 ML IV SCH (09:30)
[2017-06-21] MEDS ORDERED: ceFAZolin 2 GM/SWFI 2 GM/20 ML SYR IVP ONE (09:45)
--- NOTE | 2017-06-21 11:59 | ASMTCMCOM ---
CM Note CM Note Notes: Pts case discussed in morning rounds. CM met w/ pt for dispo planning. Pt will need fdc ivabx. Pt is agreeable to having HC through [facility]. Referral made to [facility] and [facility]. Both are able to accept. Ludmila from [facility] will speak to the pt and run benefits. Anticipate that pt will d/c Sunday. CM to follow. Plan: [facility]; PT, OT, RN and Saryta Date Signed: 06/21/2017 11:58 AM Electronically Signed By:WALE Giles
--- NOTE | 2017-06-21 12:06 | HOSPPROG ---
Hospitalist Progress Note Assessment/Plan: 89 yo female with NSTEMI, Non MRSA Staph bacteremia, Fever, and suprapubic pain presumably from acute cystitis * Non-STEMI -opted for medical management -if recurrent CP, consider cath -ASA, metoprolol, statin, lisinopril -didn't tolerate IV heparin due to increased hematuria * CAD - known + stress test * Chronic systolic CHF - EF 42% * Recurrent DVT - Factor V Leiden -INR subtherapeutic on presentation - now improved -Cont Warfarin, Pharmacy dosing * Urothelial cell cancer s/p right nephrectomy * Left ureteral obstruction s/p recent stent * suprapubic pain, improving but still present -If not significantly improved tomorrow, will consider imaging * SSS s/p PCM * DM II * MSSA bacteremia, Fever, source possibly right forearm thrombophlebitis -ID following -Vanco and Rocephin stopped, Ancef started * Anemia Plan: -Ancef, f/u repeat blood cultures -cont Warfarin, monitor hematuria, cont with Aspirin -Cards following -monitor suprapubic pain, which she reports mild improvement. Consider imaging per above -monitor anemia, slight decrease daily. If further drop tomorrow and still with suprapubic pain, then image. -PT/OT -d/w nurse, cm, pharmacy. Subjective: afebrile. still with suprapubic pain, although improved over 48 hrs. pain worse with movement. Objective: Vital Signs Temp Pulse Resp BP Pulse Ox 37.1 C 62 14 108/62 96 06/21/17 11:11 06/21/17 11:11 06/21/17 11:11 06/21/17 11:11 06/21/17 11:11 Microbiology 06/18/17 18:24 Blood Panel (PCR) - Final Blood S.aureus Methicillin Suscept. 06/18/17 19:18 Urine Culture - Final Urine,Clean Catch Three [place] Types Laboratory Results 06/21/17 03:00 06/20/17 05:00 06/20/17 06/21/17 06/22/17 05:59 05:59 05:59 Intake Total 1200 880 Output Total 1150 550 Balance 50 330 PT 25.6 SEC (12.0-15.0) H 06/21/17 03:00 INR 2.34 (0.83-1.16) H 06/21/17 03:00 - Physical Exam Constitutional: no apparent distress Eyes: PERRL, EOMI Ears, Nose, Mouth, Throat: moist mucous membranes, hearing normal Cardiovascular: regular rate and rhythym, No edema Respiratory: no respiratory distress Gastrointestinal: normoactive bowel sounds, tenderness (suprapubic tenderness ( mild) (improving)) Genitourinary: no bladder fullness Skin: warm Neurologic: AAOx3 Psychiatric: interacting appropriately, not anxious, not encephalopathic Lymph, Heme, Immunologic: No petechiae ICD10 Worksheet Patient Problems: Problems Problem Status Onset Chest pain Acute chronic disease [facility]/transitional care Acute Abdominal pain Acute Acute renal injury Acute Ureterolithiasis Acute
--- NOTE | 2017-06-21 12:59 | PDCARPN ---
Cardiology Progress Note Chief Complaint: Patient doing well today. No cardiovascular complaints. Suprapubic discomfort is improved today. Assessment/Plan: Assessment: 06-21-17 Daughters are present in the room with the patient today. Patient feeling better today. No cardiovascular complaints voiced. Blood to urine is reportedly improved. 06-20-17 Overall, patient doing well. Suprapubic discomfort is still present, but less pronounced. No cardiovascular complaints of chest pains or pressure. PO tolerance without issues. Ongoing blood in urine. 06-19-17 Patient reports that she is feeling well today, but did have complaints of "breaking a fever this morning". Suprapubic discomfort has been noted, and there was blood in urine. No chest pains or pressure. No PND or orthopnea. Patient voiced that she is not feeling as well as she did yesterday, but her symptoms do not sound CV related. Ongoing work up for UTI (from review of chart ). 06-18-17 Patient is an 89 y/o female with history of CAD, ischaemic CMP (EF of 40-45% by echo), HTN, HLP, DM, factor V Leiden deficiency, renal cell carcinoma s/p nephrectomy (right), and non Q wave myocardial infarction (recently), with desires for optimization of medical therapy (and not pursuit of invasive left heart catheterization given comorbidities). According to the patient, and Dr. Rajesh Jauregui, this is the plan. The patient has not cardiovascular complaints - no chest pains or pressure, no PND or orthopnea. Patient was sitting up reading the newspaper this morning. Plan: (1) Coumadin should continue for history of Factor V Leiden (2) ASA should continue with CV risks profile (3) Ranexa should continue for noted history (4) Lopressor and Zestril should continue as at present (5) Statins to continue for HLP, and maintain annual assessment of cholesterol and LFTs (6) Aggressive DM management should continue. (7) Treatment for UTI continues (IV antibiotics). (8) Outpatient follow up with Dr. Rajesh Jauregui ([facility]) should be arranged for in less than one week. Subjective: No cardiovascular complaints Objective: Vital Signs (8 Hrs) Temp Pulse Resp BP Pulse Ox 06/21/17 11:11 37.1 C 62 14 108/62 96 06/21/17 08:00 37.8 C 69 18 112/51 L 93 Intake/Output (24 Hrs) 06/20/17 06/21/17 06/22/17 05:59 05:59 05:59 Intake Total 1200 880 Output Total 1150 550 Balance 50 330 Intake: Oral (ml) 1000 880 IV Infused (ml) 200 Vancomycin 750 mg In Ns 150 150 ml @ 150 mls/hr IV Q24H CARLOS Rx#:[id number] cefTRIAXone 1 GM/DEXTROSE 50 50 ml @ 100 mls/hr IV DAILY [facility] Rx#:[id number] Output: Urine (ml) 1150 550 Bedside Commode 1150 550 Other: Weight 62 kg Intake Quantity Yes Sufficient Number of Voids Bedside Commode 1 2 Toilet 1 3 Result Diagrams: 06/21/17 03:00 06/20/17 05:00 Telemetry: AV paced - Physical Exam Constitutional: WDWN, healthy appearing, no apparent distress Eyes: PERRL, EOMI Ears, Nose, Mouth, Throat: moist mucous membranes Cardiovascular: regular rate and rhythm, systolic murmur, pulses symmetric bilat , No jugular vein distention Peripheral Pulses: 2+: dorsalis-pedis (R), dorsalis-pedis (L) Respiratory: clear to auscultate bilat, no crackles, no wheezes Gastrointestinal: normoactive bowel sounds Genitourinary: suprapubic full/tender Skin: no edema Musculoskeletal: no muscular tenderness Neurologic: AAOx3, CN II-XII grossly intact Psychiatric: cooperative, interactive, following commands ICD10 Worksheet Patient Problems: Problems Problem Status Onset Chest pain Acute chronic disease mgmt/transitional care Acute Abdominal pain Acute Acute renal injury Acute Ureterolithiasis Acute
[2017-06-21] MEDS: WARFARIN SODIUM 3 MG TAB PO SCH (16:30)
[2017-06-21] MEDS: ACETAMINOPHEN 325 MG TAB PO PRN (18:56)
[2017-06-21] MEDS: ISOSORBIDE MONONITRATE 30 MG TAB.SR PO SCH (21:14)
[2017-06-21] MEDS: ceFAZolin 2 GM/SWFI 2 GM/20 ML SYR IVP SCH (21:14)
[2017-06-21] MEDS: LISINOPRIL 2.5 MG TAB PO SCH (21:14)
[2017-06-22 04:04] LABS: PLATELET COUNT 206 10^3/uL (150-400)
[2017-06-22 04:15] LABS: INR 2.64 (0.83-1.16); PROTIME(PATIENT) 28.1 SEC (12.0-15.0)
[2017-06-22] MEDS: ATORVASTATIN CALCIUM 10 MG TAB PO SCH (08:34)
[2017-06-22] MEDS: METOPROLOL TARTRATE 25 MG TAB PO SCH ×2 (08:34→22:01)
[2017-06-22] MEDS: RANOLAZINE 500 MG TAB.ER PO SCH ×2 (08:34→22:01)
[2017-06-22] MEDS: glipiZIDE 5 MG TAB PO SCH (08:35)
[2017-06-22] MEDS: ASPIRIN EC 81 MG TAB PO SCH (08:35)
[2017-06-22] MEDS: INSULIN LISPRO 100 UNIT/ML SC SCH ×3 (08:36→17:15)
[2017-06-22] MEDS: ceFAZolin 2 GM/SWFI 2 GM/20 ML SYR IVP SCH ×2 (09:48→22:01)
[2017-06-22] MEDS ORDERED: NS 500 ML IV ONE (10:29)
--- NOTE | 2017-06-22 10:34 | HOSPPROG ---
Hospitalist Progress Note Assessment/Plan: 89 yo female with NSTEMI, Non MRSA Staph bacteremia, Fever, and suprapubic pain presumably from acute cystitis * Non-STEMI -opted for medical management -if recurrent CP, consider cath -ASA, metoprolol, statin, lisinopril -didn't tolerate IV heparin due to increased hematuria * CAD - known + stress test * Chronic systolic CHF - EF 42% * Recurrent DVT - Factor V Leiden -INR subtherapeutic on presentation - now improved -Cont Warfarin, Pharmacy dosing * Urothelial cell cancer s/p right nephrectomy * Left ureteral obstruction s/p recent stent * suprapubic pain, improving but still present -If not significantly improved tomorrow, will consider imaging * SSS s/p PCM * DM II * MSSA bacteremia, Fever, source possibly right forearm thrombophlebitis -ID following -Vanco and Rocephin stopped, Ancef started * Anemia Plan: -Ancef, f/u repeat blood cultures -cont Warfarin, monitor hematuria, cont with Aspirin -Cards following -Check CT abd/pelvis to eval abd/suprapubic pain. Will provide IVF bolus prior. -Anemia is better today. Cont to monitor -PT/OT -d/w nurse, cm, pharmacy during bedside rounds Subjective: Still with suprapubic pain, worse with movement. We discussed imaging options and she wants to proceed with CT of Abd/Pelvis. Hgb has increased. INR is at goal. Bcx from 06/21: NGTD Objective: Vital Signs Temp Pulse Resp BP Pulse Ox 37.4 C 76 20 137/63 H 95 06/22/17 07:49 06/22/17 07:49 06/22/17 07:49 06/22/17 07:49 06/22/17 07:49 Microbiology 06/18/17 18:24 Blood Panel (PCR) - Final Blood S.aureus Methicillin Suscept. Laboratory Results 06/22/17 03:29 06/20/17 05:00 06/21/17 06/22/17 06/23/17 05:59 05:59 05:59 Intake Total 880 640 Output Total 550 350 Balance 330 290 PT 28.1 SEC (12.0-15.0) H 06/22/17 03:29 INR 2.64 (0.83-1.16) H 06/22/17 03:29 - Physical Exam Constitutional: no apparent distress, appears nourished Eyes: PERRL, EOMI Ears, Nose, Mouth, Throat: moist mucous membranes, hearing normal Cardiovascular: regular rate and rhythym, No edema Respiratory: no respiratory distress Gastrointestinal: normoactive bowel sounds, tenderness (suprapubic tenderness) Skin: warm Neurologic: AAOx3 Psychiatric: interacting appropriately, not anxious, not encephalopathic Lymph, Heme, Immunologic: No petechiae ICD10 Worksheet Patient Problems: Problems Problem Status Onset Chest pain Acute chronic disease mgmt/transitional care Acute Abdominal pain Acute Acute renal injury Acute Ureterolithiasis Acute
[2017-06-22] MEDS ORDERED: IOPAMIDOL (ISOVUE-300) 100 ML BTL ONE (12:38)
--- NOTE | 2017-06-22 12:57 | PCMIDPN ---
Assessment/Plan: 1. MSSA bacteremia likely secondary to thrombophlebitis: Continue Ancef as is. Repeat blood cultures have cleared. Not ready for discharge presently given other medical issues (having some suprapubic discomfort, CT scan of the abdomen and pelvis today to further evaluate this). As outlined previously, will need 4 weeks of therapy in the setting of pacemaker , etc. Subjective: Very loquacious! Drinking contrast in preparation for abdominal CT to further evaluate her suprapubic discomfort. Denies nausea or vomiting. No diarrhea. Objective: T-max 37 degrees for Ancef 2 g IV q.12 hours day 1. (Antibiotics day 3 Vital Signs Temp Pulse Resp BP Pulse Ox 37.4 C 76 20 137/63 H 95 06/22/17 07:49 06/22/17 07:49 06/22/17 07:49 06/22/17 07:49 06/22/17 07:49 Microbiology 06/18/17 18:24 Blood Panel (PCR) - Final Blood S.aureus Methicillin Suscept. Laboratory Results 06/22/17 03:29 06/20/17 05:00 06/21/17 06/22/17 06/23/17 05:59 05:59 05:59 Intake Total 880 640 Output Total 550 350 Balance 330 290 Blood cultures June 1804/19 bottles MSSA Blood cultures June 21 no growth so far - Physical Exam General Appearance: alert, no apparent distress EENT: pharynx normal, No thrush Respiratory: lungs clear Cardiac/Chest: other Abdomen: non-tender, soft Skin: other (right AC fossa with palpable nodule at previous PIV site), No rash , No embolic lesions ICD10 Worksheet Patient Problems: Problems Problem Status Onset Chest pain Acute chronic disease [facility]/transitional care Acute Abdominal pain Acute Acute renal injury Acute Ureterolithiasis Acute
--- NOTE | 2017-06-22 16:01 | ASMTCMCOM ---
CM Note CM Note Notes: Ludmila from [facility] stopped by to speak w/ pt today. Pt will have an out of pocket cost of about $200/week. Pt would like to come to the outpatient infusion center. It is uncertain when pt will be medically stable to d/c. CM will help arrange for outpatient infusion directed by ID. Pt will d/c with [facility], PT and OT. CM updated BC of this. CM to follow. Plan: Outpatient infusion w/ [facility] HH, PT and OT Date Signed: 06/22/2017 04:00 PM Electronically Signed By:WALE Giles
[2017-06-22] MEDS: WARFARIN SODIUM 3 MG TAB PO SCH (17:15)
[2017-06-22] MEDS: PHENAZOPYRIDINE HCL 100 MG TAB PO SCH (18:13)
[2017-06-22] MEDS: LISINOPRIL 2.5 MG TAB PO SCH (20:14)
[2017-06-22] MEDS: ISOSORBIDE MONONITRATE 30 MG TAB.SR PO SCH (22:01)
[2017-06-22] MEDS: ACETAMINOPHEN 325 MG TAB PO PRN (23:09)
[2017-06-23 04:06] LABS: INR 3.01 (0.83-1.16); PROTIME(PATIENT) 31.1 SEC (12.0-15.0)
[2017-06-23] MEDS: glipiZIDE 5 MG TAB PO SCH (08:39)
[2017-06-23] MEDS: INSULIN LISPRO 100 UNIT/ML SC SCH ×3 (10:50→18:00)
[2017-06-23] MEDS: ceFAZolin 2 GM/SWFI 2 GM/20 ML SYR IVP SCH ×2 (10:50→21:23)
[2017-06-23] MEDS: METOPROLOL TARTRATE 25 MG TAB PO SCH ×2 (10:51→21:13)
[2017-06-23] MEDS: RANOLAZINE 500 MG TAB.ER PO SCH ×2 (10:51→21:13)
[2017-06-23] MEDS: ATORVASTATIN CALCIUM 10 MG TAB PO SCH (10:51)
[2017-06-23] MEDS: PHENAZOPYRIDINE HCL 100 MG TAB PO SCH ×3 (10:51→19:38)
[2017-06-23] MEDS: ASPIRIN EC 81 MG TAB PO SCH (10:51)
--- NOTE | 2017-06-23 12:41 | PCMIDPN ---
Assessment/Plan: 1. MSSA bacteremia likely secondary to thrombophlebitis: Continue Ancef as is. Repeat blood cultures have cleared. Stop date for antibiotics tentatively set for July 19. (4 weeks) Agree that she can be transitioned to 2 g daily of ceftriaxone moving forward upon discharge. Please see 2. 2. Fever: Etiology unclear. Will obtain right upper extremity ultrasound to rule out deep venous thrombosis in the setting of right antecubital fossa thrombophlebitis. No evidence of pneumonia, C difficile colitis, or other hospital related issue. No drug rash. Of note, the patient's abdominal CT showed a well placed ureteral stent. 06/23/17 12:38 Subjective: Had a fever to 391 last night. States that she had no rigors associated with this fever. Denies cough, abdominal pain, shortness of breath, hip pain, chest pain or other. No diarrhea. Objective: Ancef 2 g IV q.12 hours day 2 (antibiotics day 4) T-max 39.1 degrees Vital Signs Temp Pulse Resp BP Pulse Ox 37.0 C 72 8 L 128/55 H 95 06/23/17 11:26 06/23/17 11:26 06/23/17 11:26 06/23/17 11:26 06/23/17 11:26 Laboratory Results 06/22/17 03:29 06/23/17 03:20 06/22/17 06/23/17 06/24/17 05:59 05:59 06:59 Intake Total 640 350 Output Total 350 400 400 Balance 290 -50 -400 Blood cultures June 21 no growth - Physical Exam General Appearance: other (Elderly female, very loquacious, no apparent distress whatsoever.) EENT: pharynx normal, No thrush Respiratory: lungs clear Cardiac/Chest: regular rate, rhythm Extremities: other (Right antecubital fossa with palpable cord consistent with thrombophlebitis. No significant tenderness. No erythema or evidence of drainable abscess, but the area is mildly tender. Right upper extremity not particularly swollen at all or tender.) Abdomen: non-tender, soft Skin: No rash, No embolic lesions ICD10 Worksheet Patient Problems: Problems Problem Status Onset Chest pain Acute chronic disease mgmt/transitional care Acute Abdominal pain Acute Acute renal injury Acute Ureterolithiasis Acute
--- NOTE | 2017-06-23 14:05 | ASMTCMCOM ---
CM Note CM Note Notes: Chart reviewed. Patient discussed in rounds. Continues to spike fevers more on the evening. She wishes to have her infusions here as they are not covered completely by her insurance. I also discussed this with Infectious disease as they will need to assist with orders. Not medically cleared for discharge yet. CM to follow, Date Signed: 06/23/2017 02:04 PM Electronically Signed By:Frida Samuel RN
--- NOTE | 2017-06-23 14:36 | HOSPPROG ---
Hospitalist Progress Note Assessment/Plan: 89 yo female with NSTEMI, Non MRSA Staph bacteremia, Fever, and suprapubic pain presumably from acute cystitis * Non-STEMI -opted for medical management -if recurrent CP, consider cath -ASA, metoprolol, statin, lisinopril -didn't tolerate IV heparin due to increased hematuria * CAD - known + stress test * Chronic systolic CHF - EF 42% * Recurrent DVT - Factor V Leiden -INR subtherapeutic on presentation - now improved -Cont Warfarin, Pharmacy dosing * Urothelial cell cancer s/p right nephrectomy * Left ureteral obstruction s/p recent stent * suprapubic pain * ct essentially negative * pain reolved * SSS s/p PCM * DM II * MSSA bacteremia, Fever, source possibly right forearm thrombophlebitis -ID following -cont IV ancef. will go home on ceftriaxone * fever last night, getting us upper ext * Anemia Subjective: feels good. fever last night. lower abd pain resolved Objective: Vital Signs Temp Pulse Resp BP Pulse Ox 37.0 C 72 8 L 128/55 H 95 06/23/17 11:26 06/23/17 11:26 06/23/17 11:26 06/23/17 11:26 06/23/17 11:26 Laboratory Results 06/22/17 03:29 06/23/17 03:20 06/22/17 06/23/17 06/24/17 05:59 05:59 06:59 Intake Total 640 350 Output Total 350 400 400 Balance 290 -50 -400 PT 31.1 SEC (12.0-15.0) H 06/23/17 03:20 INR 3.01 (0.83-1.16) H 06/23/17 03:20 - Physical Exam Constitutional: no apparent distress, appears nourished, not in pain Eyes: anicteric sclera, EOMI Ears, Nose, Mouth, Throat: moist mucous membranes, hearing normal Cardiovascular: regular rate and rhythym, no murmur, rub, or gallop Respiratory: no respiratory distress, no rales or rhonchi Gastrointestinal: normoactive bowel sounds, soft, non-tender abdomen, no palpable masses Skin: warm Musculoskeletal: other (right arm with hard cord antecubital fossa) Neurologic: AAOx3 Psychiatric: interacting appropriately, not anxious, not encephalopathic, thought process linear ICD10 Worksheet Patient Problems: Problems Problem Status Onset Chest pain Acute chronic disease mgmt/transitional care Acute Abdominal pain Acute Acute renal injury Acute Ureterolithiasis Acute
[2017-06-23] MEDS ORDERED: WARFARIN SODIUM 2 MG TAB PO ONE (16:00)
[2017-06-23] MEDS: LISINOPRIL 2.5 MG TAB PO SCH (20:04)
[2017-06-23] MEDS: ISOSORBIDE MONONITRATE 30 MG TAB.SR PO SCH (21:13)
[2017-06-24 04:11] LABS: INR 3.01 (0.83-1.16); PROTIME(PATIENT) 31.1 SEC (12.0-15.0)
[2017-06-24] MEDS ORDERED: ERGOCALCIFEROL 50,000 I.UNIT CAP PO SCH (09:00)
[2017-06-24] MEDS: RANOLAZINE 500 MG TAB.ER PO SCH ×2 (10:18→21:09)
[2017-06-24] MEDS: INSULIN LISPRO 100 UNIT/ML SC SCH ×3 (10:18→19:11)
[2017-06-24] MEDS: ATORVASTATIN CALCIUM 10 MG TAB PO SCH (10:19)
[2017-06-24] MEDS: PHENAZOPYRIDINE HCL 100 MG TAB PO SCH ×3 (10:19→19:52)
[2017-06-24] MEDS: glipiZIDE 5 MG TAB PO SCH (10:20)
[2017-06-24] MEDS: ASPIRIN EC 81 MG TAB PO SCH (10:20)
[2017-06-24] MEDS: METOPROLOL TARTRATE 25 MG TAB PO SCH ×2 (10:20→21:09)
[2017-06-24] MEDS: ceFAZolin 2 GM/SWFI 2 GM/20 ML SYR IVP SCH ×2 (10:24→21:09)
--- NOTE | 2017-06-24 12:38 | HOSPPROG ---
Hospitalist Progress Note Assessment/Plan: 89 yo female with NSTEMI, Non MRSA Staph bacteremia, Fever, and suprapubic pain presumably from acute cystitis * Non-STEMI -opted for medical management -if recurrent CP, consider cath -ASA, metoprolol, statin, lisinopril -didn't tolerate IV heparin due to increased hematuria * CAD - known + stress test * Chronic systolic CHF - EF 42% * Recurrent DVT - Factor V Leiden -INR subtherapeutic on presentation - now improved -Cont Warfarin, Pharmacy dosing * Urothelial cell cancer s/p right nephrectomy * Left ureteral obstruction s/p recent stent * suprapubic pain * ct essentially negative * pain reolved * SSS s/p PCM * DM II * MSSA bacteremia, Fever, source possibly right forearm thrombophlebitis -ID following -cont IV ancef. will go home on ceftriaxone * no further fever. Probably PICC tomorrow then dc with home ABX. She will come to infusion center * Anemia Subjective: abdominal discomfort improving. only there when she ambulates Objective: Vital Signs Temp Pulse Resp BP Pulse Ox 36.8 C 64 12 125/67 H 94 06/24/17 07:35 06/24/17 07:35 06/24/17 07:35 06/24/17 07:35 06/24/17 07:35 Microbiology 06/18/17 18:24 Blood Culture - Final Blood Staphylococcus Aureus Blood Panel (PCR) - Final S.aureus Methicillin Suscept. 06/18/17 18:35 Blood Culture - Final Blood Laboratory Results 06/22/17 03:29 06/23/17 03:20 06/23/17 06/24/17 06/25/17 04:59 05:59 05:59 Intake Total Output Total 450 Balance -450 PT 31.1 SEC (12.0-15.0) H 06/24/17 03:24 INR 3.01 (0.83-1.16) H 06/24/17 03:24 - Physical Exam Constitutional: no apparent distress, appears nourished, not in pain Eyes: anicteric sclera, EOMI Ears, Nose, Mouth, Throat: moist mucous membranes, hearing normal Cardiovascular: regular rate and rhythym Respiratory: no respiratory distress, no rales or rhonchi, clear to auscultation Gastrointestinal: normoactive bowel sounds, soft, non-tender abdomen, no palpable masses Skin: warm Neurologic: AAOx3 Psychiatric: interacting appropriately, not anxious, not encephalopathic, thought process linear ICD10 Worksheet Patient Problems: Problems Problem Status Onset Chest pain Acute chronic disease mgmt/transitional care Acute Abdominal pain Acute Acute renal injury Acute Ureterolithiasis Acute
--- NOTE | 2017-06-24 13:55 | PCMIDPN ---
Assessment/Plan: 1. MSSA bacteremia likely secondary to thrombophlebitis: Continue Ancef as is. Repeat blood cultures have cleared. Stop date for antibiotics tentatively set for July 19. (4 weeks) Agree that she can be transitioned to 2 g daily of ceftriaxone moving forward upon discharge. Will order this to start tomorrow. Will also order PICC line for tomorrow. 2. Fever: No further fevers. 06/24/17 13:54 Subjective: In excellent spirits. No complaints. Objective: Ancef 2 g IV q.12 hours day 3 (antibiotics day 5 T-max 37.3 degrees Vital Signs Temp Pulse Resp BP Pulse Ox 36.8 C 66 16 148/86 H 95 06/24/17 13:24 06/24/17 13:24 06/24/17 13:24 06/24/17 13:24 06/24/17 13:24 Microbiology 06/18/17 18:24 Blood Culture - Final Blood Staphylococcus Aureus Blood Panel (PCR) - Final S.aureus Methicillin Suscept. 06/18/17 18:35 Blood Culture - Final Blood Laboratory Results 06/22/17 03:29 06/23/17 03:20 06/23/17 06/24/17 06/25/17 04:59 05:59 05:59 Intake Total 450 Output Total 700 Balance -250 Repeat blood cultures from June 21 no growth so far - Physical Exam General Appearance: alert, no apparent distress Extremities: other (Superficial thrombophlebitis over right arm is stable. No overlying skin discoloration.) ICD10 Worksheet Patient Problems: Problems Problem Status Onset Chest pain Acute chronic disease mgmt/transitional care Acute Abdominal pain Acute Acute renal injury Acute Ureterolithiasis Acute
[2017-06-24] MEDS ORDERED: ALTEPLASE 2 MG VIAL IVP PRN (13:56)
[2017-06-24] MEDS ORDERED: WARFARIN SODIUM 2 MG TAB PO ONE (16:00)
[2017-06-24] MEDS: LISINOPRIL 2.5 MG TAB PO SCH (19:52)
[2017-06-24] MEDS: ISOSORBIDE MONONITRATE 30 MG TAB.SR PO SCH (21:09)
[2017-06-25 04:42] LABS: INR 2.75 (0.83-1.16)
[2017-06-25 07:35] VITALS: BP 138/74; PULSE 64; RESP 18; TEMP 98.9; O2SAT 92
[2017-06-25] MEDS ORDERED: cefTRIAXone 2 GM in STERILE WATER INJ 20 ML IV SCH (09:00)
[2017-06-25] MEDS: ATORVASTATIN CALCIUM 10 MG TAB PO SCH (09:44)
[2017-06-25] MEDS: ASPIRIN EC 81 MG TAB PO SCH (09:44)
[2017-06-25] MEDS: glipiZIDE 5 MG TAB PO SCH (09:45)
[2017-06-25] MEDS: RANOLAZINE 500 MG TAB.ER PO SCH (09:45)
[2017-06-25] MEDS: PHENAZOPYRIDINE HCL 100 MG TAB PO SCH (09:45)
[2017-06-25] MEDS: METOPROLOL TARTRATE 25 MG TAB PO SCH (09:45)
--- NOTE | 2017-06-25 09:55 | GDS ---
[f rep st] DISCHARGE SUMMARY DIAGNOSES: 1. Coronary artery disease, status post non-Q-wave myocardial infarction with elevated troponins, ma x elevation at 22. Evaluated by Dr. Jauregui on admission. 2. Methicillin-sensitive Staphylococcus aureus bacteremia. Will need ongoing IV antibiotics with ce ftriaxone [facility]. Source possibly right forearm thrombophlebitis, followe d by Infectious Disease. 3. Chronic systolic congestive heart failure with an ejection fraction of 42%. 4. Recurrent deep venous thrombosis with Factor 5 Leiden, currently anticoagulated with warfarin. 5. History of urethral cell carcinoma status post right nephrectomy. 6. Left ureteral obstruction status post recent stent. 7. Suprapubic pain. 8. Sick sinus syndrome status post pacemaker. 9. Diabetes. PROCEDURES DONE: 1. Echocardiogram: Ejection fraction 40% to 45% with diastolic dysfunction, severely dilated left a trium. Right atrium normal. Left ventricle with inferior wall hypokinesis and apex slightly hypokin etic. Please see full report. 2. Abdominal pelvic ultrasound: Normal-appearing left kidney without hydronephrosis, status post ri ght nephrectomy. 3. Extremity venous study: No DVT in the left leg. 4. Abdominal CT scan: Left ureteral stent decompressing previous upper urinary obstruction. Comple te resolution of perinephric left periureteral stranding since 2 weeks prior. Please see report for full details. 5. Right upper extremity ultrasound: Superficial thrombus in the right cephalic vein. No evidence of DVT. HOSPITAL COURSE: The patient is an 89-year-old with a complicated past medical history, who was admi tted with chest pain and elevated troponins. She was evaluated by Cardiology and per their recommend ation, she opted for medical management. Her troponins peaked at 22. She had an echo that showed an EF of 40% to 45%, and she is currently chest pain free and doing well. She also was noted to have b acteremia, was placed on IV Vanco and Infectious Disease was consulted. This is diagnosed after she had an elevated fever on 06/18/2017. Blood cultures were obtained and ended up growing methicillin s ensitive Staph aureus. Infectious Disease has been following her and they have set up ongoing antibi otics as an outpatient at the [facility] of ceftriaxone. They will continue to follow her as an outpatient. She also has a history of ureteral cell carcinoma. She has a stent in place in her lef t ureter and will follow up with Urology as an outpatient. It was felt that the bacteremia was most likely secondary to a thrombophlebitis rather than the stent. At the time of discharge, she is doing well. She is feeling much improved and is ready to go home and complete her IV antibiotics. She schmitz s no specific complaints today. CONDITION ON DISCHARGE: Good. She has been afebrile. Heart rate 64, blood pressure 138/74, she is 92% on room air. She is alert and oriented. Heart is regular. Lungs have slightly diminished breat h sounds, otherwise clear. DISCHARGE MEDICATIONS: Please see discharge medication form. FOLLOW UP: She will follow up with Cardiology transitional care on Sunday the . She should foll ow up with Infectious Disease per their recommendations, and follow up with Dr. Ness as well. TOTAL TIME: Spent with patient on day of discharge in coordination of care is 35 minutes. I will se t up home care as needed at the time of discharge. /[id number]/MODL
[2017-06-25] MEDS: INSULIN LISPRO 100 UNIT/ML SC SCH ×2 (10:12→13:11)
--- NOTE | 2017-06-25 12:27 | PDIAF ---
- Diagnosis Diagnosis: CAD, nstemi, pneumonia with staph bacteremia. Code Status: Full Code - Medication Management Discharge Medications: Medications to Continue on Transfer Ergocalciferol [Vitamin D2 (*)] 50,000 unit PO HARRIS@01/05/17 [Last Taken ] Isosorbide Mononitrate [Imdur 30 mg (*)] 30 mg PO HS 01/05/17 [Last Taken ] Lisinopril [Zestril 2.5 mg (*)] 2.5 mg PO DAILY@20 01/05/17 [Last Taken 06/16/17 ] Metoprolol Tartrate [Lopressor 25 mg (*)] 25 mg PO BID 01/05/17 [Last Taken 07/01] Ranolazine [Ranexa] 500 mg PO BID 01/05/17 [Last Taken 06/16/17] Warfarin Sodium [Coumadin 3MG (*)] 3 mg PO DAILY16 01/05/17 [Last Taken 06/16/17 ] Atorvastatin Calcium [Lipitor 10 mg (*)] 10 mg PO DAILY 06/08/17 [Last Taken 07/01] glipiZIDE [Glucotrol 5 mg] 5 mg PO DAILY 06/08/17 [Last Taken 06/16/17] sitaGLIPtin PHOSPHATE [Januvia 25 MG (*)] 25 mg PO DAILY 06/19/17 [Last Taken Unknown] Aspirin EC [Aspirin EC 81 mg (*)] 81 mg PO DAILY tab 06/25/17 [Last Taken Unknown] cefTRIAXone [Rocephin] 2 gm IV DAILY vial 06/25/17 [Last Taken Unknown] Additional Medication Instructions: getting ceftiaxone at outpatient infusion center, end date july 19 Discharge Medications: Refer to the Discharge Home Medication list for PRN reason. - Orders Services needed: Physical Therapy Isolation Type: None Diet Recommendation: no restrictions on diet Diet Texture: Regular Texture Diet - Follow Up Care Current Providers and Referrals: Tito Shirley MD [Medical Doctor] - 07/02/17 11:00 am Jennifer Child MD [Medical Doctor] - 07/03/17 11:30 am Patient,NotPresent [Unknown] - As per Instructions
--- NOTE | 2017-06-25 12:33 | ASMTLACE ---
LACE Length of stay for Answers: 7-13 days current admission Acuity / Level of Answers: No Care: Did the patient have an inpatient admission? Comorbidities - select Answers: Any tumor (including all that apply lymphoma or leukemia) Congestive heart failure Coronary Atery Disease Diabetes (uncontrolled or controlled) # of Emergency department Answers: 1-2 visits in the last 6 months Score: 13 Date Signed: 06/25/2017 12:33 PM Electronically Signed By:Frida Samuel RN
--- NOTE | 2017-06-25 12:39 | ASMTCMCOM ---
CM Note CM Note Notes: Patient medically cleared for discharge to home. She will go to her daughter Jackie who lives up in [place]. They have chosen the infusion time of 11:30 am as outpatient , the patient will also have [facility] for home therapy. Final orders via allscripts. CM available should other needs arise. Date Signed: 06/25/2017 12:36 PM Electronically Signed By:Frida Samuel RN
[2017-06-25] MEDS ORDERED: WARFARIN SODIUM 3 MG TAB PO SCH (16:00)
== END 2017-06-25 12:42 | disposition home health service (06) | DRG 281 ==
LOC: EDUNIT# → F2W 06-17 00:26 → OBSVTOIN 06-17 08:41
PROVIDERS: ADMIT Student in an Organized Health Care Education/Training Program; ATTEND Student in an Organized Health Care Education/Training Program
PROC: 02HV33Z Insertion of Infusion Device into Superior Vena Cava, Percutaneous Approach (ICD-10-PCS; principal; 2017-06-21)
DX: I21.4 Non-ST elevation (NSTEMI) myocardial infarction (principal); I11.0 Hypertensive heart disease with heart failure; I50.22 Chronic systolic (congestive) heart failure; R78.81 Bacteremia; B95.61 Methicillin susceptible Staphylococcus aureus infection as the cause of diseases classified elsewhere; I80.8 Phlebitis and thrombophlebitis of other sites; I25.10 Atherosclerotic heart disease of native coronary artery without angina pectoris; N39.0 Urinary tract infection, site not specified; E11.9 Type 2 diabetes mellitus without complications; E78.5 Hyperlipidemia, unspecified; D68.2 Hereditary deficiency of other clotting factors; Z96.643 Presence of artificial hip joint, bilateral; I49.5 Sick sinus syndrome; Z90.5 Acquired absence of kidney; Z85.528 Personal history of other malignant neoplasm of kidney; Z95.0 Presence of cardiac pacemaker; Z86.711 Personal history of pulmonary embolism; Z86.718 Personal history of other venous thrombosis and embolism; Z79.01 Long term (current) use of anticoagulants
CPT/HCPCS: 97110-GP; 97116-GP; 97161-GP; 97165-GO; 97530-GO; 97530-GP; 97535-GO; C1751; G0378; G8978-GP-CJ; G8979-GP-CI; G8987-GO-CI; G8988-GO-CI; G8989-GO-CI; J0690; J0696; J1644; J1815; J2250; J3010; J3370; Q9967

== ENCOUNTER → 2017-08-03 | Outpatient (CLI) | payer OTHER | LOC: FIMAGING 14:07 | PROVIDERS: ATTEND Specialist | DX: Z13.89 Encounter for screening for other disorder (principal); Z85.528 Personal history of other malignant neoplasm of kidney; Z90.5 Acquired absence of kidney ==